=== PATIENT | male | born 1985 | race African-American/Black ===

== ENCOUNTER 2019-10-21 10:21 | Emergency (ER) | payer OTHER, SELFPAY ==
[2019-10-21 10:56] VITALS: BP 161/111; PULSE 80; RESP 16; TEMP 36.8; O2SAT 98
--- NOTE | 2019-10-21 11:25 | ED.DENTAL ---
HPI - Dental/Oral General Chief complaint: Dental/Oral Stated complaint: DENTAL PAIN Time Seen by Provider: 10/21/19 11:10 Source: patient Mode of arrival: ambulatory Limitations: no limitations History of Present Illness HPI Narrative: This is a 34 year old male that presents to the ER for toothache since last night. Reports constant throbbing to the area. Reports he has not seen a dentist in some time. Denies fever, edema or erythema. Location: Tooth # (32) Duration: constant Relieving factors: nothing Context: history of dental caries and poor dental care Related Data Home Medications Medication Instructions Recorded Confirmed metformin 500 mg PO DAILY 10/21/19 Allergies Allergy/AdvReac Type Severity Reaction Status Date / Time No Known Allergies Allergy Verified 10/21/19 10:59 Review of Systems Review of Systems: Narrative: CONSTITUTIONAL: Denies fever ENT: Reports dentalgia RESPIRATORY: Denies dyspnea. GASTROINTESTINAL: Denies vomiting All systems reviewed & are unremarkable except as noted in HPI and below PMFSH Social History Social History (Updated 10/21/19 @ 11:29 by Deb Solis PA-C) Smoking status: Never smoker Substance use: never Gender identity (if verbalized by the patient): Male Exam Narrative: Exam Narrative: GENERAL: Well-appearing, well-nourished, and in no acute distress. HEAD: Normocephalic, atraumatic. EYES: EOMI. ENT: Mucous membranes moist. Oropharynx without tonsillar hypertrophy exudate or other lesions. Poor dentition. Tooth #32 cracked and tender to palpation. Mild surrounding edema. No erythema or fluctuance to suggest abscess. No trismus NECK: Supple. No adenopathy or masses. CHEST: Clear to auscultation. No respiratory distress. No wheezes rales or rhonchi HEART: Regular rate and rhythm. No murmur heard. Normal peripheral pulses. EXTREMITIES: Normal range of motion. No edema. SKIN: Warm, dry, no rash. NEURO: No focal deficits. Alert and oriented x3. PSYCH: Normal mood and affect Course Vital Signs Vital signs: Vital Signs Temperature 98.3 F 10/21/19 10:56 Pulse Rate 80 10/21/19 10:56 Respiratory Rate 16 10/21/19 10:56 Blood Pressure 161/111 H 10/21/19 10:56 Pulse Oximetry 98 10/21/19 10:56 Temperature 98.3 F 10/21/19 10:56 Pulse Rate 80 10/21/19 10:56 Respiratory Rate 16 10/21/19 10:56 Blood Pressure 161/111 H 10/21/19 10:56 Pulse Oximetry 98 10/21/19 10:56 MDM - Dental/Oral MDM Narrative Medical decision making narrative: Patient presents emergency department for toothache since last night. He is afebrile and nontoxic-appearing. Mild edema surrounding the tooth #32 that is tender to palpation. No erythema or fluctuance to suggest abscess. Patient will be started on oral antibiotic and was instructed to follow-up with a dentist. He was given warnings to return the ER Critical Care Time Critical Care Time Critical Care Time: No Discharge Plan Discharge Clinical Impression: Toothache Patient Disposition: Home, Self-Care Condition: Stable Instructions: Antibiotic Form, Toothache (ED) Additional Instructions: Return to the Emergency Department if you experience fever >101, increasing swelling and redness of your tooth, or any other symptoms that are concerning to you Take antibiotic as prescribed. Tylenol or Ibuprofen as needed for pain. You can apply a dab of clove oil to a Qtip and apply to the tooth to help numb the area Follow up with your dentist Prescriptions: New amoxicillin-pot clavulanate 875-125 mg tablet 1 tablet PO Q12H 7 Days Qty: 14 RF: 0 No Action metformin 1,000 mg tablet 500 mg PO DAILY RF: 0 Follow-up/Referrals: PHYSICIAN NOT ON STAFF,NONSTAFF [Primary Care Provider] -
[2019-10-21] MEDS: AMOXICILLIN/CLAVULANATE K 875-125 MG TAB 1 TABLET PO (12:04)
[2019-10-21] MEDS: KETOROLAC (*BKC) 60 MG/2 ML VIAL IM (12:04)
[2019-10-21 12:05] VITALS: BP 125/78; PULSE 66; RESP 18; O2SAT 99
== END 2019-10-21 12:05 | disposition home or self-care (01) ==
PROVIDERS: Emergency Provider Emergency Medicine
DX: K08.89 Other specified disorders of teeth and supporting structures (principal)
CPT/HCPCS: 96372; 99283; A9270; J1885

== ENCOUNTER 2019-12-25 16:53 | Emergency (ER) | payer OTHER, SELFPAY ==
--- NOTE | ~2019-12-25 | CT_ITS ---
EXAMINATION: CT abdomen pelvis wo con EXAM DATE: 12/25/2019 17:24 INDICATION: Flank pain. TECHNIQUE: Spiral CT of the abdomen and pelvis was performed without contrast. Axial, coronal and sag ittal images were reviewed. The dose-length product (DLP) for this examination was 470.65 mGy-cm. T he exposure was tailored according to patient size (auto mA exposure control), and iterative reconstr uction (ASIR) was used as additional dose reduction technique. There is no prior study for compariso n. FINDINGS: There is no nephrolithiasis or hydronephrosis. The prostate is unremarkable. The bladder is unremarkable. The liver, spleen, adrenal glands and pancreas are unremarkable. Gallbladder is u nremarkable. No biliary obstruction. There is no retroperitoneal or pelvic lymphadenopathy. The appendix is normal. The stomach and small bowel are unremarkable. There is expected amount of c olonic stool. No free intraperitoneal gas. The heart is normal in size. There are no pericardial or pleural effusions. The lung bases are unremarkable. The bones are unremarkable. IMPRESSION: 1. No nephrolithiasis, hydronephrosis or acute intra-abdominal findings. Reviewed, dictated and finalized at location A.
--- NOTE | 2019-12-25 17:12 | ED.ABDPAIN ---
HPI - Abdominal Pain General Chief Complaint: Abdominal Pain <Oren Todd PA-C - Last Filed: 12/25/19 19:34> Stated Complaint: abd pain <MARLENY Huitron Last Filed: 12/25/19 19:34> Time Seen by Provider: 12/25/19 16:55 <Oren Todd PA-C - Last Filed: 12/25/19 19:34> Source: patient <Oren Todd PA-C - Last Filed: 12/25/19 19:34> Mode of arrival: ambulatory <MARLENY Huitron Last Filed: 12/25/19 19:34> Limitations: no limitations <Oren Todd PA-C - Last Filed: 12/25/19 19:34> History of Present Illness HPI narrative: Patient is a 34-year-old male who presents with 2 days duration of flank pain noting aching pain to the left flank denies similar occurrence in the past injury or trauma notes nausea nothing is made the pain better or worse and has not taken anything for his symptoms and presents per private vehicle <Oren Todd PA-C - Last Filed: 12/25/19 19:34> Related Data Home Medications: Home Medications Medication Instructions Recorded Confirmed metformin 500 mg PO DAILY 10/21/19 <MARLENY Huitron Last Filed: 12/25/19 19:34> Allergies/Adverse Reactions: Allergies Allergy/AdvReac Type Severity Reaction Status Date / Time No Known Allergies Allergy Verified 10/21/19 10:59 <Oren Todd PA-C - Last Filed: 12/25/19 19:34> Review of Systems Review of Systems: All systems reviewed & are unremarkable except as noted in HPI and below <Oren Todd PA-C - Last Filed: 12/25/19 19:34> PMFSH Social History Social History: Social History Smoking status: Never smoker Substance use: never Gender identity (if verbalized by the patient): Male <Oren Todd PA-C - Last Filed: 12/25/19 19:34> Exam Narrative: Exam Narrative: GENERAL: Well-appearing, well-nourished, and in no acute distress. HEAD: Normocephalic, atraumatic. EYES: PERRLA and EOMI. ENT: Nares clear, no rhinorrhea or epistaxis. Mucous membranes moist. Oropharynx without tonsillar hypertrophy exudate or other lesions. CHEST: Clear to auscultation. No respiratory distress. No wheezes rales or rhonchi HEART: Regular rate and rhythm. No murmur heard. Normal peripheral pulses. ABDOMEN: Soft, left-sided abdominal tenderness no rebound or guarding, nondistended EXTREMITIES: Normal range of motion. No edema. SKIN: Warm, dry, no rash. NEURO: No focal deficits. Alert and oriented x3. Cranial nerves II through XII grossly intact PSYCH: Normal mood and affect. <Oren Todd PA-C - Last Filed: 12/25/19 19:34> Course Course Emergency Course: Patient is a 34-year-old male with left lower back pain of unknown etiology afebrile nontoxic-appearing no distress resting in the room comfortably was given fluids and medications in the emergency department with no high risk changes in the blood work or imaging felt appropriate for outpatient reevaluation provided with reasons to return and is felt appropriate for outpatient reevaluation <Oren Todd PA-C - Last Filed: 12/25/19 19:34> Vital Signs Vital signs: Vital Signs Temperature 37.6 C 12/25/19 17:23 Pulse Rate 91 12/25/19 17:23 Respiratory Rate 17 12/25/19 17:23 Blood Pressure 153/111 H 12/25/19 17:23 Pulse Oximetry 100 12/25/19 17:23 Temperature 37.6 C 12/25/19 17:23 Pulse Rate 89 12/25/19 20:15 Respiratory Rate 17 12/25/19 20:15 Blood Pressure 143/93 H 12/25/19 20:15 Pulse Oximetry 97 12/25/19 20:15 <MARLENY Huitron Last Filed: 12/25/19 19:34> Vital Signs Temperature 37.6 C 12/25/19 17:23 Pulse Rate 91 12/25/19 17:23 Respiratory Rate 17 12/25/19 17:23 Blood Pressure 153/111 H 12/25/19 17:23 Pulse Oximetry 100 12/25/19 17:23 Temperature 37.6 C 12/25/19 17:23 Pulse Rate 89 12/25/19 20:15 Respiratory Rate 17 12/25/19
[2019-12-25 17:23] VITALS: BP 153/111; PULSE 91; RESP 17; TEMP 37.6; O2SAT 100
[2019-12-25] MEDS: SODIUM CHLORIDE 0.9% IV 1,000 ML 999 ML IV CONT (17:39)
[2019-12-25] MEDS: FAMOTIDINE 20 MG/2 ML VIAL IV PUSH (17:40)
[2019-12-25] MEDS: ONDANSETRON INJ 4 MG/2 ML VIAL IV PUSH (17:40)
[2019-12-25 17:58] LABS: Basophils Percent Auto 0.3 % (0.2-1.2); Eosinophils Absolute Auto 0.2 K/mm3 (0-0.3); Eosinophils Percent Auto 2.7 % (0-4.4); Hematocrit 42.7 % (42.0-52.0); Hemoglobin 13.6 g/dL (14.0-18.0); Immature Granulocyte Absolute 0.01 K/mm3 (0.00-0.031); Immature Granulocyte Percent A 0.1 % (0-0.5); Lymphocytes Absolute Auto 3.45 K/mm3 (0.9-3.2); Mean Corpuscular HGB Conc 31.9 g/dl (32-36); Mean Corpuscular Hemoglobin 26.6 pg (26-34); Mean Corpuscular Volume 83.6 fl (80-100); Mean Platelet Volume 9.5 fl (7.4-10.4); Monocytes Absolute Auto 0.7 K/mm3 (0.1-0.6); Monocytes Percent Auto 9.9 % (2.6-8.5); Neutrophils Absolute Auto 2.9 K/mm3 (1.3-6.7); Platelet Count Result 337 k/mm3 (150-375); Red Blood Count 5.11 M/mm3 (4.6-6.20); Red Cell Distribution Width 13.1 % (11.5-14.5); White Blood Count 7.3 K/mm3 (4.5-10.0)
[2019-12-25 18:16] LABS: Alanine Aminotransferase 57 U/L (4-50); Albumin Level 4.9 g/dL (3.5-5.1); Alkaline Phosphatase 48 U/L (38-126); Aspartate Amino Transferase 39 U/L (17-59); Bilirubin,Total 0.3 mg/dL (0.2-1.3); Blood Urea Nitrogen 14 mg/dL (9-20); Calcium 9.8 mg/dL (8.4-10.2); Carbon Dioxide 29 mmol/L (22-30); Chloride 100 mmol/L (98-107); Estimated CRCL calculation 86 ml/min; Estimated Glomerular Filt Rate > 60; Glucose 73 mg/dL (75-110); Lipase 60 U/L (23-300); Sodium 139 mmol/L (137-145)
[2019-12-25 18:23] LABS: Potassium 3.9 mmol/L (3.4-5.0)
[2019-12-25 19:06] VITALS: BP 152/101; PULSE 87; RESP 15; O2SAT 100
[2019-12-25] MEDS: KETOROLAC 30 MG/ML VIAL (*BKC) IV PUSH (19:07)
[2019-12-25 19:15] LABS: Add Urine Microscopic? NO; Appearance Urine Clear (Clear); Bilirubin Urine Negative (Negative); Blood Urine Negative (Negative); Color Urine Straw (Yellow); Glucose Urine UA Negative (Negative); Ketones Urine Negative (Negative); Leukocyte Esterase Ur Negative LEU/UL (Negative); Nitrate Urine Negative (Negative); Protein Urine Negative (Negative); Specific Grav Ur 1.016 (1.001-1.035); Urobilinogen Urine Negative mg/dL (<2.0)
[2019-12-25 19:26] VITALS: BP 133/82; PULSE 84; RESP 18; O2SAT 99
--- NOTE | 2019-12-25 19:26 | PC.NURSE ---
Assumed care of pt at this time. Report from CHRIS Lewis
[2019-12-25 20:15] VITALS: BP 143/93; PULSE 89; RESP 17; O2SAT 97
== END 2019-12-25 20:15 | disposition home or self-care (01) ==
PROVIDERS: Emergency Medicine Emergency Medical Services; Emergency Provider Emergency Medicine; PCP Internal Medicine
DX: R10.9 Unspecified abdominal pain (principal)
CPT/HCPCS: 36415; 74176; 80053; 81003; 83690; 85025; 96361; 96365; 96375; 99284; J0131; J1885; J2405; J7030

== ENCOUNTER 2020-01-06 14:07 | Emergency (ER) | payer OTHER, SELFPAY ==
--- NOTE | ~2020-01-06 | XR_ITS ---
XR chest 1V portable DATE: 01/06/2020 14:49 INDICATION: Shortness of breath TECHNIQUE: Portable AP chest on 01/06/2020 at 1450 hours COMPARISON: 07/15/2017 PA and lateral chest FINDINGS: Normal heart size. No hilar or mediastinal enlargement. No pulmonary infiltrate or consolid ation, pleural effusion or pulmonary vascular congestion or pneumothorax is detected. IMPRESSION: No active cardiopulmonary disease Reviewed, dictated and finalized at location A.
--- NOTE | 2020-01-06 14:11 | ECG_ITS ---
Measurements Intervals [place] Rate: 107 P: 27 DE: 146 QRS: 3 QRSD: 85 T: 9 QT: 327 QTc: 436 Interpretive Statements SINUS TACHYCARDIA BORDERLINE T WAVE ABNORMALITY- INFERIOR LEADS BASELINE WANDER- I, II, AVR, AVL, AVF ABNORMAL ECG Electronically Signed On 01-06-2020 15:05:34 CDT by Artem Gil D.O.
[2020-01-06 14:20] VITALS: BP 171/108; PULSE 114; RESP 16; TEMP 37.1; O2SAT 99
--- NOTE | 2020-01-06 14:25 | ED.GENADULT ---
HPI - General Adult General Chief complaint: Shortness of Breath/Dyspnea <Oren Todd PA-C - Last Filed: 01/06/20 18:47> Stated complaint: sob <Oren Todd PA-C - Last Filed: 01/06/20 18:47> Time Seen by Provider: 01/06/20 14:17 <Oren Todd PA-C - Last Filed: 01/06/20 18:47> Source: patient <MARLENY Huitron Last Filed: 01/06/20 18:47> Mode of arrival: ambulatory <MARLENY Huitron Last Filed: 01/06/20 18:47> Limitations: no limitations <Oren Todd PA-C - Last Filed: 01/06/20 18:47> History of Present Illness HPI narrative: Patient is a 34-year-old male who presents to emergency department for evaluation of 3 days duration of pleuritic left-sided chest pain also noting some constipation. Patient notes he took MiraLAX with some improvement. Patient denies any cough URI symptoms. Patient notes he has had some intermittent nausea and vomiting. Patient has not seen primary care for this. Patient was instructed to come to the ER by primary care. On arrival to emergency department patient resting comfortably in the room in no distress notes some mild aching discomfort of the upper abdomen and left-sided chest pain that is worse with deep breathing <Oren Todd PA-C - Last Filed: 01/06/20 18:47> Related Data Home medications: Home Medications Medication Instructions Recorded Confirmed metformin 500 mg PO DAILY 10/21/19 lisinopril 5 mg PO DAILY 01/06/20 <MARLENY Huitron Last Filed: 01/06/20 18:47> Allergies/adverse reactions: Allergies Allergy/AdvReac Type Severity Reaction Status Date / Time No Known Allergies Allergy Verified 01/06/20 14:43 <Oren Todd PA-C - Last Filed: 01/06/20 18:47> Review of Systems Review of Systems: All systems reviewed & are unremarkable except as noted in HPI and below <Oren Todd PA-C - Last Filed: 01/06/20 18:47> [facility] Past Medical History Medical History: Medical History (Updated 01/06/20 @ 18:46 by Oren Todd PA-C) Diabetes mellitus <Oren Todd PA-C - Last Filed: 01/06/20 18:47> Social History Social History: Social History Smoking status: Never smoker Substance use: never Gender identity (if verbalized by the patient): Male <Oren Todd PA-C - Last Filed: 01/06/20 18:47> Exam Narrative: Exam Narrative: GENERAL: Well-appearing, well-nourished, and in no acute distress. HEAD: Normocephalic, atraumatic. EYES: PERRLA and EOMI. ENT: Nares clear, no rhinorrhea or epistaxis. Mucous membranes moist. CHEST: Clear to auscultation. No respiratory distress. No wheezes rales or rhonchi HEART: Regular rate and rhythm. No murmur heard. Normal peripheral pulses. ABDOMEN: Soft, epigastric tenderness to palpation no rebound or guarding, nondistended, normal active bowel sounds. EXTREMITIES: Normal range of motion. No edema. SKIN: Warm, dry, no rash. NEURO: No focal deficits. Alert and oriented x3. Cranial nerves II through XII grossly intact PSYCH: Normal mood and affect. <Oren Todd PA-C - Last Filed: 01/06/20 18:47> Course Course Emergency Course: Patient in the room in no distress aware of case findings treatment plan and diagnosis agreeing to follow-up as directed or to return if symptoms worsen or concerns patient is afebrile nontoxic-appearing no distress and felt appropriate for outpatient reevaluation <Oren Todd PA-C - Last Filed: 01/06/20 18:47> Vital Signs Vital signs: Vital Signs Temperature 98.8 F 01/06/20 14:20 Pulse Rate 114 H 01/06/20 14:20 Respiratory Rate 16 01/06/20 14:20 Blood Pressure 171/108 H 01/06/20 14:20 Pulse Oximetry 99 01/06/20 14:20 Temperature 98.8 F 01/06/20 14:20 Pulse Rate 70 01/06/20 19:00 Respiratory Rate 16 01/06/20 19:00 Blood Pressure 134/96 H 01/06/20 19:00 Puls
[2020-01-06] MEDS: ONDANSETRON INJ 4 MG/2 ML VIAL IV PUSH (14:43)
[2020-01-06 14:55] LABS: Basophils Percent Auto 0.3 % (0.2-1.2); Eosinophils Absolute Auto 0.2 K/mm3 (0-0.3); Eosinophils Percent Auto 2.7 % (0-4.4); Hematocrit 44.4 % (42.0-52.0); Hemoglobin 13.9 g/dL (14.0-18.0); Immature Granulocyte Absolute 0.01 K/mm3 (0.00-0.031); Immature Granulocyte Percent A 0.2 % (0-0.5); Lymphocytes Absolute Auto 2.55 K/mm3 (0.9-3.2); Lymphocytes Percent Auto 43.1 % (18.3-44.2); Mean Corpuscular HGB Conc 31.3 g/dl (32-36); Mean Corpuscular Hemoglobin 26.6 pg (26-34); Mean Corpuscular Volume 84.9 fl (80-100); Mean Platelet Volume 9.7 fl (7.4-10.4); Monocytes Absolute Auto 0.6 K/mm3 (0.1-0.6); Monocytes Percent Auto 10.3 % (2.6-8.5); Neutrophils Absolute Auto 2.6 K/mm3 (1.3-6.7); Neutrophils Percent Auto 43.4 % (45.5-73.1); Platelet Count Result 362 k/mm3 (150-375); Red Blood Count 5.23 M/mm3 (4.6-6.20); Red Cell Distribution Width 13.2 % (11.5-14.5); White Blood Count 5.9 K/mm3 (4.5-10.0)
[2020-01-06 15:00] VITALS: BP 157/103; PULSE 107; RESP 14; O2SAT 97
[2020-01-06 15:05] LABS: Partial Thromboplastin Time 26.4 SECONDS (22.3-36.8); Prothrombin Time 13.1 Seconds (11.1-14.7)
[2020-01-06 15:08] LABS: Alanine Aminotransferase 95 U/L (4-50); Albumin Level 4.8 g/dL (3.5-5.1); Alkaline Phosphatase 53 U/L (38-126); Aspartate Amino Transferase 51 U/L (17-59); Bilirubin,Total 0.3 mg/dL (0.2-1.3); Blood Urea Nitrogen 10 mg/dL (9-20); Calcium 9.4 mg/dL (8.4-10.2); Carbon Dioxide 28 mmol/L (22-30); Chloride 103 mmol/L (98-107); Estimated CRCL calculation 77 ml/min; Estimated Glomerular Filt Rate > 60; Glucose 83 mg/dL (75-110); Lipase 37 U/L (23-300); Potassium 4.2 mmol/L (3.4-5.0); Sodium 139 mmol/L (137-145)
[2020-01-06 15:17] LABS: D Dimer 0.27 ug/mL (<0.48)
[2020-01-06 15:19] LABS: Troponin I < 0.012 ng/mL (0.000-0.034)
[2020-01-06 15:20] LABS: Add Urine Microscopic? NO; Appearance Urine Clear (Clear); Bilirubin Urine Negative (Negative); Blood Urine Negative (Negative); Color Urine Colorless (Yellow); Glucose Urine UA Negative (Negative); Ketones Urine Negative (Negative); Leukocyte Esterase Ur Negative LEU/UL (Negative); Nitrate Urine Negative (Negative); Protein Urine Negative (Negative); Specific Grav Ur 1.005 (1.001-1.035); Urobilinogen Urine Negative mg/dL (<2.0)
[2020-01-06 16:00] VITALS: BP 148/98; PULSE 100; RESP 16; O2SAT 97
[2020-01-06 17:00] VITALS: BP 142/100; PULSE 92; RESP 16; O2SAT 98
[2020-01-06 18:00] VITALS: BP 144/94; PULSE 90; RESP 16; O2SAT 97
[2020-01-06 18:06] LABS: Troponin I < 0.012 ng/mL (0.000-0.034)
[2020-01-06 19:00] VITALS: BP 134/96; PULSE 70; RESP 16; O2SAT 98
== END 2020-01-06 19:47 | disposition home or self-care (01) ==
PROVIDERS: Emergency Medicine Emergency Medical Services; Emergency Provider Emergency Medicine; PCP Internal Medicine
DX: R07.81 Pleurodynia (principal); R10.10 Upper abdominal pain, unspecified; R00.0 Tachycardia, unspecified; R94.31 Abnormal electrocardiogram [ECG] [EKG]
CPT/HCPCS: 36415; 71045; 80053; 81003; 83690; 84484; 85025; 85380; 85610; 85730; 93005; 96374; 99284; J2405

== ENCOUNTER 2020-01-10 11:06 | Emergency (ER) | payer OTHER, SELFPAY ==
[2020-01-10 11:15] VITALS: BP 124/86; PULSE 98; RESP 16; TEMP 37.2; O2SAT 99
--- NOTE | 2020-01-10 11:37 | ED.SKABFB ---
HPI - Skin/Abscess/Foreign Bdy General Chief complaint: Wound/Laceration Stated complaint: possible infected left hand Time Seen by Provider: 01/10/20 11:33 Source: patient and RN notes reviewed Mode of arrival: ambulatory Limitations: no limitations History of Present Illness HPI narrative: Patient presents today complaining of a scratch to the dorsum of his right hand that was sustained a few days ago when he was reaching for something in his glove box. An area has formed a scab. He is up-to-date on his tetanus vaccine. Denies any drainage. Patient is concerned that he has gangrene. complaint: discoloration Related Data Home Medications Medication Instructions Recorded Confirmed metformin 1,000 mg PO DAILY 10/21/19 01/10/20 famotidine [Pepcid] 20 mg PO BID PRN 01/10/20 01/10/20 Allergies Allergy/AdvReac Type Severity Reaction Status Date / Time No Known Allergies Allergy Verified 01/10/20 11:33 Review of Systems Review of Systems: Narrative: CONSTITUTIONAL: Denies body aches, fever, chills, or sweats. EYES: Denies visual changes, redness, or discharge. ENT: Denies rhinorrhea, congestion, sore throat, or otalgia. CARDIOVASCULAR: Denies chest pain, palpitations, or edema. RESPIRATORY: Denies cough or dyspnea. GASTROINTESTINAL: Denies abdominal pain, nausea, vomiting, or diarrhea. GENITOURINARY: Denies dysuria or hematuria. SKIN: Denies rash, itching. + Abrasion to left hand MUSCULOSKELETAL: Denies back pain, joint pain, or myalgia. NEUROLOGIC: Denies headache, numbness, tingling, or weakness. PSYCH: Denies depression or anxiety. [facility] Past Medical History Medical History (Updated 01/10/20 @ 11:41 by Darlene Henry, [facility], ) Diabetes mellitus Social History Social History Smoking status: Never smoker Substance use: never Gender identity (if verbalized by the patient): Male Comments At time of signature, I have reviewed and agree with nursing past medical, surgical, social and family history unless otherwise noted. Please see nursing chart for further information. There is no relevant family history pertinent to the presenting complaint Exam Narrative: Exam Narrative: GENERAL: Well-appearing, well-nourished, and in no acute distress. HEAD: Normocephalic, atraumatic. EYES: EOMI. No redness or drainage. ENT: Mucous membranes pink and moist. NECK: Normal AROM. CHEST: No respiratory distress. EXTREMITIES: Normal range of motion. No edema. SKIN: Warm, dry, no rash. Capillary refill normal. Normal skin turgor.[id number] scabbed abrasion to dorsum of left hand with scant surrounding erythema. No edema, induration, or fluctuance noted. Distal sensation intact. Capillary refill normal. Radial pulse normal. Full AROM of the wrist and all fingers. NEURO: No focal deficits. Alert and oriented x3. Gait steady. PSYCH: Normal affect. No signs of depression or anxiety. MDM - Skin/Abscess/Foreign Bdy Differential Diagnosis Differential diagnosis: Likely abscess of skin or subcutaneous tissue, cellulitis and other (abrasion) Critical Care Time Critical Care Time Critical Care Time: No Discharge Plan Discharge Clinical Impression: Abrasion Patient Disposition: Home, Self-Care Condition: Stable Instructions: Abrasion (ED) Additional Instructions: Apply the mupirocin ointment as directed. Monitor for any signs of worsening infection such as increased redness, pain, swelling or drainage. Follow-up with your PCP if you note any. Take Tylenol for pain. Your blood pressure was elevated above 120/80 today at Urgent Care. This puts you above the threshold for follow up. Please schedule a followup visit with your personal physician as soon as possible, for further evaluation and treatment. Even blood pressure exceeding 120/80 may indicate pre-hypertension. Patient Language: Faroese Prescriptions: New mupirocin 2 %
== END 2020-01-10 11:42 | disposition home or self-care (01) ==
PROVIDERS: Emergency Provider Nurse Practitioner; PCP Internal Medicine
DX: S60.511A Abrasion of right hand, initial encounter (principal); Z79.84 Long term (current) use of oral hypoglycemic drugs; E11.9 Type 2 diabetes mellitus without complications; W26.9XXA Contact with unspecified sharp object(s), initial encounter
CPT/HCPCS: 99213; G0463

== ENCOUNTER 2020-07-29 10:19 | Emergency (ER) | payer OTHER, SELFPAY ==
--- NOTE | ~2020-07-29 | US_ITS ---
EXAMINATION: US scrotum doppler EXAM DATE: 07/29/2020 12:18 INDICATION: Bilateral testicular, scrotal pain. TECHNIQUE: Multiple grayscale and Doppler images of the testicles and scrotum were obtained bilateral ly. There is no prior study for comparison. FINDINGS: Right testicle measures 3.7 x 2.9 x 2.0 cm and is morphologically normal. Low resistance Doppler sissy w confirmed. The epididymis is unremarkable. There is no hydrocele or varicocele. Left testicle measures 3.7 x 2.9 x 1.8 cm and is morphologically normal. Low resistance Doppler flow confirmed. The epididymis is unremarkable. There is no hydrocele or varicocele. IMPRESSION: 1. Unremarkable testicular/scrotal ultrasound exam. Reviewed, dictated and finalized at location A. [employer]
[2020-07-29 10:52] VITALS: BP 144/93; PULSE 105; RESP 22; TEMP 37.1; O2SAT 99
[2020-07-29 11:35] LABS: Add Urine Microscopic? YES; Appearance Urine Clear (Clear); Bilirubin Urine Negative (Negative); Blood Urine Negative (Negative); Color Urine Yellow (Yellow); Glucose Urine UA 3+ mg/dL (Negative); Ketones Urine Negative (Negative); Leukocyte Esterase Ur Negative LEU/UL (Negative); Mucus Urine Rare /lpf; Nitrate Urine Negative (Negative); Protein Urine 2+ mg/dL (Negative); RBC Urine 0-2 /hpf (0-2); Specific Grav Ur 1.038 (1.001-1.035); Urobilinogen Urine Negative mg/dL (<2.0); WBC Urine 0-3 /hpf
--- NOTE | 2020-07-29 11:45 | ED.GENADULT ---
HPI - General Adult General Chief complaint: Urogenital-Male Stated complaint: weakness/freq urination Time Seen by Provider: 07/29/20 11:23 Source: patient History of Present Illness HPI narrative: Patient is a 34 y/o male complaining of frequent urination for 1 week. He is unable to quantify how many times a day he is going to restroom. There is no alleviating or exacerbating factor. He also has some testicular pain. He thinks he lost 15 lbs in last 1-2 weeks. He states that he is on Metformin once daily for diabetes. Related Data Home Medications Medication Instructions Recorded Confirmed metformin 1,000 mg PO DAILY 10/21/19 01/10/20 doxycycline hyclate 07/29/20 Allergies Allergy/AdvReac Type Severity Reaction Status Date / Time No Known Allergies Allergy Verified 07/29/20 11:18 Review of Systems Constitutional: Constitutional: Denies chills, Denies fever(s), Denies headache(s) and Denies weakness Eyes: Eyes: Denies blurry vision ENT: Denies headache(s) and Denies neck pain Cardiovascular: Cardiovascular: Denies chest pain and Denies dyspnea Respiratory: Respiratory: Denies cough and Denies dyspnea Gastrointestinal: Gastrointestinal: Denies abdominal pain, Denies diarrhea, Denies nausea and Denies vomiting Genitourinary: Genitourinary: Denies hematuria, Denies dysuria, Reports testicular pain and Reports urinary frequency Musculoskeletal: Musculoskeletal: Denies back pain and Denies neck pain Neurologic: Denies headache(s) and Denies weakness PMFSH Past Medical History Medical History Diabetes mellitus Social History Social History Smoking status: Never smoker Substance use: never Gender identity (if verbalized by the patient): Male Exam Const: General: no acute distress and well developed Orientation/consciousness: oriented to person, oriented to place, oriented to time and patient oriented x3 HENMT: Head: normocephalic Ears: external ears normal General nose exam: Normal external nose present Eyes: General: appearance normal, both eyes and all related structures Conjunctivae: conjunctivae normal Neck: Neck: normal visual inspection and full ROM Chest: Chest palpation & inspection: normal inspection of the chest and no tenderness Resp: Effort & Inspection: normal respiratory effort Auscultation: clear to auscultation bilaterally Cardio: Rate: regular rate Rhythm: regular rhythm GI: GI Palp: No abdominal tenderness and Yes Soft to palpation : Penis: Yes normal penis Scrotum: scrotum normal and no masses Skin: General skin exam: normal color and turgor normal Neuro: General: oriented to person, oriented to place, oriented to time and patient oriented x3 Cognition (Neuro): normal cognition Extrem: General: normal to inspection, full ROM and no pedal edema Psych: Appearance: grossly normal Mental Status: mental status grossly normal Affect: normal affect Course Vital Signs Vital signs: Vital Signs Temperature 37.1 C 07/29/20 10:52 Pulse Rate 105 H 07/29/20 10:52 Respiratory Rate 22 H 07/29/20 10:52 Blood Pressure 144/93 H 07/29/20 10:52 Pulse Oximetry 99 07/29/20 10:52 Temperature 37.1 C 07/29/20 10:52 Pulse Rate 78 07/29/20 15:54 Respiratory Rate 16 07/29/20 15:54 Blood Pressure 134/94 H 07/29/20 15:54 Pulse Oximetry 99 07/29/20 10:52 Medical Decision Making Vital Signs Vital Signs: Vital Signs Temperature 37.1 C 07/29/20 10:52 Pulse Rate 105 H 07/29/20 10:52 Respiratory Rate 22 H 07/29/20 10:52 Blood Pressure 144/93 H 07/29/20 10:52 Pulse Oximetry 99 07/29/20 10:52 Temperature 37.1 C 07/29/20 10:52 Pulse Rate 78 07/29/20 15:54 Respiratory Rate 16 07/29/20 15:54 Blood Pressure 134/94 H 07/29/20 15:54 Pulse Oximetry 99 07/29/20 10:52 Lab Data Result diagrams: 07/29/20 12:2
[2020-07-29 12:36] LABS: Basophils Percent Auto 0.3 % (0.2-1.2); Eosinophils Absolute Auto 0.2 K/mm3 (0-0.3); Eosinophils Percent Auto 2.4 % (0-4.4); Hematocrit 42.7 % (42.0-52.0); Immature Granulocyte Absolute 0.01 K/mm3 (0.00-0.031); Immature Granulocyte Percent A 0.2 % (0-0.5); Lymphocytes Absolute Auto 2.78 K/mm3 (0.9-3.2); Mean Corpuscular HGB Conc 32.8 g/dl (32-36); Mean Corpuscular Hemoglobin 27.3 pg (26-34); Mean Corpuscular Volume 83.2 fl (80-100); Mean Platelet Volume 10.4 fl (7.4-10.4); Monocytes Absolute Auto 0.5 K/mm3 (0.1-0.6); Monocytes Percent Auto 7.1 % (2.6-8.5); Neutrophils Absolute Auto 3.2 K/mm3 (1.3-6.7); Platelet Count Result 342 k/mm3 (150-375); Red Blood Count 5.13 M/mm3 (4.6-6.20); Red Cell Distribution Width 12.4 % (11.5-14.5); White Blood Count 6.6 K/mm3 (4.5-10.0)
[2020-07-29 12:49] LABS: Alanine Aminotransferase 59 U/L (4-50); Albumin Level 4.9 g/dL (3.5-5.1); Alkaline Phosphatase 70 U/L (38-126); Anion Gap 12 mmol/L (8-16); Aspartate Amino Transferase 35 U/L (17-59); Bilirubin,Total 0.7 mg/dL (0.2-1.3); Blood Urea Nitrogen 18 mg/dL (9-20); Carbon Dioxide 26 mmol/L (22-30); Chloride 100 mmol/L (98-107); Estimated CRCL calculation 80 ml/min; Estimated Glomerular Filt Rate > 60; Glucose 467 mg/dL (75-110); Potassium 4.7 mmol/L (3.4-5.0); Sodium 138 mmol/L (137-145)
[2020-07-29] MEDS: SODIUM CHLORIDE 0.9% IV 1,000 ML 999 ML IV CONT (13:46)
[2020-07-29] MEDS: INSULIN HUMAN REGULAR (*BKC) 100 UNITS/ML 10 UNITS IV PUSH (13:48)
[2020-07-29 15:29] LABS: Glucose Point of Care 278 (65-105)
[2020-07-29 15:54] VITALS: BP 134/94; PULSE 78; RESP 16
== END 2020-07-29 15:54 | disposition home or self-care (01) ==
PROVIDERS: Emergency Provider Emergency Medicine; PCP Internal Medicine
DX: E11.65 Type 2 diabetes mellitus with hyperglycemia (principal); Z79.84 Long term (current) use of oral hypoglycemic drugs; N50.819 Testicular pain, unspecified
CPT/HCPCS: 36415; 76870; 80053; 81001; 85025; 93976; 96361; 96374; 99284; J1815; J7030

== ENCOUNTER 2020-08-02 15:05 | Emergency (ER) | payer OTHER, SELFPAY ==
--- NOTE | ~2020-08-02 | CT_ITS ---
EXAMINATION: CT abdomen pelvis wo con DATE: 08/02/2020 16:32 INDICATION: Flank and abdominal pain. TECHNIQUE: Computed tomography (CT) of the abdomen and pelvis was performed without intravenous contr ast. Automated exposure control and iterative reconstruction technique were employed. The dose-length product was 427.77 mGy-cm. COMPARISON: 12/25/2019 FINDINGS: Lung bases are clear. Heart size is normal. No pericardial or pleural effusion. Bilateral gynecomasti a. Somewhat heterogeneous pattern of diffuse hepatic steatosis with focal sparing along the gallbladd er fossa. Gallbladder, spleen, pancreas and bilateral adrenal glands are normal. Kidneys and ureters are normal with no urolithiasis, hydroureteronephrosis or perinephric/ureteral stranding. Bladder and prostate are normal. Bowels including the appendix are normal. No free intraperitoneal gas or fluid. No pathologically enlarged abdominal or pelvic lymphadenopathy. Tiny fat-containing umbilical hernia . Bones are unremarkable. IMPRESSION: 1. Normal appendix. No urolithiasis or other acute intra-abdominal/pelvic process. 2. Diffuse hepatic steatosis. Reviewed, dictated and finalized at [facility]. ENT UNION CONSULTANT IMPRESSION: 1. Normal appendix. No urolithiasis or other acute intra-abdominal/pelvic proce ss. 2. Diffuse hepatic steatosis.
[2020-08-02 15:08] VITALS: BP 134/80; PULSE 89; RESP 19; TEMP 37; O2SAT 100
[2020-08-02 15:12] LABS: Glucose Point of Care 215 (65-105)
[2020-08-02 15:18] LABS: Basophils Percent Auto 0.3 % (0.2-1.2); Eosinophils Absolute Auto 0.2 K/mm3 (0-0.3); Eosinophils Percent Auto 2.1 % (0-4.4); Hemoglobin 13.1 g/dL (14.0-18.0); Immature Granulocyte Absolute 0.02 K/mm3 (0.00-0.031); Immature Granulocyte Percent A 0.3 % (0-0.5); Lymphocytes Absolute Auto 3.34 K/mm3 (0.9-3.2); Lymphocytes Percent Auto 47.3 % (18.3-44.2); Mean Corpuscular HGB Conc 32.8 g/dl (32-36); Mean Corpuscular Hemoglobin 27.3 pg (26-34); Mean Corpuscular Volume 83.5 fl (80-100); Mean Platelet Volume 10.6 fl (7.4-10.4); Monocytes Absolute Auto 0.6 K/mm3 (0.1-0.6); Monocytes Percent Auto 8.1 % (2.6-8.5); Neutrophils Percent Auto 41.9 % (45.5-73.1); Platelet Count Result 342 k/mm3 (150-375); Red Blood Count 4.79 M/mm3 (4.6-6.20); Red Cell Distribution Width 12.5 % (11.5-14.5); White Blood Count 7.1 K/mm3 (4.5-10.0)
[2020-08-02 15:24] LABS: Add Urine Microscopic? YES; Appearance Urine Clear (Clear); Bilirubin Urine Negative (Negative); Blood Urine Negative (Negative); Color Urine Yellow (Yellow); Glucose Urine UA 3+ mg/dL (Negative); Ketones Urine Negative (Negative); Leukocyte Esterase Ur Negative LEU/UL (Negative); Nitrate Urine Negative (Negative); Protein Urine 1+ mg/dL (Negative); RBC Urine 0-2 /hpf (0-2); Specific Grav Ur 1.029 (1.001-1.035); Squamous Epithelial Cell Urine Rare /hpf (Few); Urobilinogen Urine Negative mg/dL (<2.0); WBC Urine 0-3 /hpf
[2020-08-02 15:30] LABS: Anion Gap 12 mmol/L (8-16); Blood Urea Nitrogen 19 mg/dL (9-20); Calcium 9.9 mg/dL (8.4-10.2); Carbon Dioxide 26 mmol/L (22-30); Chloride 101 mmol/L (98-107); Estimated CRCL calculation 77 ml/min; Estimated Glomerular Filt Rate > 60; Glucose 243 mg/dL (75-110); Potassium 4.2 mmol/L (3.4-5.0); Sodium 139 mmol/L (137-145)
[2020-08-02 16:20] VITALS: BP 131/73; PULSE 85; RESP 18; TEMP 36.6; O2SAT 99
[2020-08-02] MEDS: SODIUM CHLORIDE 0.9% IV 1,000 ML 999 ML IV CONT (16:20)
--- NOTE | 2020-08-02 16:40 | ED.ABDPAIN ---
HPI - Abdominal Pain General Chief Complaint: Abdominal Pain Stated Complaint: FLANK PAIN Time Seen by Provider: 08/02/20 16:03 Source: patient Mode of arrival: ambulatory Limitations: no limitations History of Present Illness HPI narrative: This is a 34 year old male that presents to the ER for bilateral flank pain x 1 week. Associated with polyuria. Also reports left sided abdominal pain. Reports he has been having trouble controlling his blood sugar. He was seen here for this a couple of days ago and has been increasing his Metformin as he was instructed. Denies fever, vomiting, diarrhea, dysuria or hematuria. Related Data Home Medications Medication Instructions Recorded Confirmed metformin 1,000 mg PO DAILY 10/21/19 01/10/20 acyclovir 08/02/20 clindamycin HCl 08/02/20 lisinopril 08/02/20 Allergies Allergy/AdvReac Type Severity Reaction Status Date / Time No Known Allergies Allergy Verified 08/02/20 15:11 Review of Systems Review of Systems: Narrative: CONSTITUTIONAL: Denies fever GASTROINTESTINAL: Reports abdominal pain. Denies nausea, vomiting, or diarrhea. GENITOURINARY: Denies dysuria or hematuria. MUSCULOSKELETAL: Reports back pain All systems reviewed & are unremarkable except as noted in HPI and below PMFSH Past Medical History Medical History Diabetes mellitus Social History Social History Smoking status: Never smoker Substance use: never Gender identity (if verbalized by the patient): Male Exam Narrative: Exam Narrative: GENERAL: Well-appearing, well-nourished, and in no acute distress. HEAD: Normocephalic, atraumatic. EYES: EOMI. CHEST: Clear to auscultation. No respiratory distress. No wheezes rales or rhonchi HEART: Regular rate and rhythm. No murmur heard. Normal peripheral pulses. ABDOMEN: Soft, nondistended, normal active bowel sounds. Tender to palpation of the left side of the abdomen, without guarding. No CVA tenderness BACK: No midline thoracic or lumbar spine tenderness EXTREMITIES: Normal range of motion. No edema. SKIN: Warm, dry, no rash. NEURO: No focal deficits. Alert and oriented x3. PSYCH: Normal mood and affect Course Consultations Consultation #1: Spoke with primary on-call Dr. Bates, who does not recommend any additional medications at this time for his diabetes. He is to follow-up at his scheduled appointment in 3 days. Date: 08/02/20 Time: 18:36 Vital Signs Vital signs: Vital Signs Temperature 98.6 F 08/02/20 15:08 Pulse Rate 89 08/02/20 15:08 Respiratory Rate 19 08/02/20 15:08 Blood Pressure 134/80 08/02/20 15:08 Pulse Oximetry 100 08/02/20 15:08 Temperature 97.1 F L 08/02/20 17:33 Pulse Rate 81 08/02/20 17:33 Respiratory Rate 17 08/02/20 17:33 Blood Pressure 139/71 08/02/20 17:33 Pulse Oximetry 99 08/02/20 17:33 MDM - Abdominal Pain MDM Narrative Medical decision making narrative: Patient presents to the emergency department for urinary frequency and flank pain. He is afebrile and nontoxic-appearing. CBC is without leukocytosis. Does show normocytic anemia with hemoglobin of 13.1. Metabolic panel without concerning findings, other than elevation in blood glucose to 243. This improved after IV fluid administration, most recent blood sugar 174. His hemoglobin A1c is 11.1. No ketones noted in urine, he does have 3+ glucose. CT scan of the abdomen and pelvis is without acute findings. Patient was updated on case findings. Spoke with primary on-call Dr. Bates, who does not recommend any additional medications at this time for his diabetes. He is to follow-up at his scheduled appointment in 3 days. Patient is stable and felt appropriate for further outpatient evaluation. He was given warnings to return to the ER Lab Data Attestation: I reviewed the patient's lab results. Result diagrams: 08/02/20 15:12
[2020-08-02 17:33] VITALS: BP 139/71; PULSE 81; RESP 17; TEMP 36.2; O2SAT 99
[2020-08-02 17:54] LABS: Glucose Point of Care 174 (65-105)
[2020-08-02 18:00] LABS: Hemoglobin A1C 11.1 % (<5.7)
[2020-08-02 18:48] VITALS: BP 116/70; PULSE 70; RESP 12; O2SAT 99
== END 2020-08-02 18:49 | disposition home or self-care (01) ==
PROVIDERS: Physician Assistant; Emergency Provider Emergency Medicine; PCP Internal Medicine
DX: E11.65 Type 2 diabetes mellitus with hyperglycemia (principal); Z79.84 Long term (current) use of oral hypoglycemic drugs; K76.0 Fatty (change of) liver, not elsewhere classified
CPT/HCPCS: 36415; 74176; 80048; 81001; 82948; 83036; 85025; 96360; 99284; J7030

== ENCOUNTER 2020-08-15 14:14 | Emergency (ER) | payer OTHER, SELFPAY ==
--- NOTE | ~2020-08-15 | XR_ITS ---
EXAMINATION: XR chest 1V portable DATE: 08/15/2020 16:06 INDICATION: Cough and shortness of breath. TECHNIQUE: A single frontal view of the chest was obtained. COMPARISON: Chest one view 01/06/20, CT abdomen and pelvis 08/02/2020 FINDINGS: The chest demonstrates clear lungs without pneumonia, pleural effusion, or pneumothorax. Th e heart size is normal. IMPRESSION: 1. No acute cardiopulmonary disease. Reviewed, dictated and finalized at location A. L CAN INSPECTOR
[2020-08-15 14:28] VITALS: BP 147/92; PULSE 83; RESP 18; TEMP 36.6; O2SAT 100
[2020-08-15 15:20] LABS: Basophils Percent Auto 0.3 % (0.2-1.2); Eosinophils Absolute Auto 0.1 K/mm3 (0-0.3); Eosinophils Percent Auto 2.1 % (0-4.4); Hematocrit 36.2 % (42.0-52.0); Hemoglobin 11.9 g/dL (14.0-18.0); Immature Granulocyte Absolute 0.02 K/mm3 (0.00-0.031); Immature Granulocyte Percent A 0.3 % (0-0.5); Lymphocytes Absolute Auto 2.83 K/mm3 (0.9-3.2); Lymphocytes Percent Auto 48.9 % (18.3-44.2); Mean Corpuscular HGB Conc 32.9 g/dl (32-36); Mean Corpuscular Hemoglobin 27.5 pg (26-34); Mean Corpuscular Volume 83.8 fl (80-100); Mean Platelet Volume 9.4 fl (7.4-10.4); Monocytes Absolute Auto 0.6 K/mm3 (0.1-0.6); Monocytes Percent Auto 9.7 % (2.6-8.5); Neutrophils Absolute Auto 2.2 K/mm3 (1.3-6.7); Neutrophils Percent Auto 38.7 % (45.5-73.1); Platelet Count Result 335 k/mm3 (150-375); Red Blood Count 4.32 M/mm3 (4.6-6.20); Red Cell Distribution Width 13.2 % (11.5-14.5); White Blood Count 5.8 K/mm3 (4.5-10.0)
[2020-08-15 15:33] LABS: Alanine Aminotransferase 48 U/L (4-50); Albumin Level 4.3 g/dL (3.5-5.1); Alkaline Phosphatase 47 U/L (38-126); Anion Gap 8 mmol/L (8-16); Aspartate Amino Transferase 35 U/L (17-59); Bilirubin,Total 0.5 mg/dL (0.2-1.3); Blood Urea Nitrogen 13 mg/dL (9-20); Calcium 8.9 mg/dL (8.4-10.2); Carbon Dioxide 28 mmol/L (22-30); Chloride 102 mmol/L (98-107); Estimated CRCL calculation 93 ml/min; Estimated Glomerular Filt Rate > 60; Glucose 220 mg/dL (75-110); Magnesium 1.8 mg/dL (1.6-2.3); Phosphorus 3.7 mg/dL (2.5-4.5); Potassium 3.9 mmol/L (3.4-5.0); Sodium 138 mmol/L (137-145)
[2020-08-15] MEDS: KETOROLAC 30 MG/ML VIAL (*BKC) IV PUSH (15:36)
[2020-08-15] MEDS: SODIUM CHLORIDE 0.9% IV 1,000 ML 999 ML IV CONT (15:36)
[2020-08-15 15:38] LABS: Beta-Hydroxybutyrate/Acetoacetate 0.06 mmol/L (0.02-0.27)
[2020-08-15 15:44] LABS: Add Urine Microscopic? NO; Appearance Urine Clear (Clear); Bilirubin Urine Negative (Negative); Blood Urine Negative (Negative); Color Urine Yellow (Yellow); Glucose Urine UA Negative (Negative); Ketones Urine Negative (Negative); Leukocyte Esterase Ur Negative LEU/UL (Negative); Nitrate Urine Negative (Negative); Protein Urine Negative (Negative); Specific Grav Ur 1.017 (1.001-1.035); Urobilinogen Urine Negative mg/dL (<2.0)
[2020-08-15 15:51] LABS: Alveolar/Arterial O2 Gradient 51.2 mmHg; Base Excess ABG -1.2 mEq/l (+/-2.0); Carboxyhemoglobin 0.4 % THb (0-2.0); Fractional Inspired Oxygen 21 %; HCO3 ABG 23.9 mEq/l (22.0-26.0); Methemoglobin ABG 0.2 %THb (0-1.5); Oxygen Content ABG 13.7 %vol (16.0-22.0); Oxyhemoglobin 82.4 % THb (90.0-100.0); PCO2 ABG 41.7 mmHg (35.0-45.0); PO2 FiO2 Ratio Arterial Blood 2.31 %; Total Hemoglobin 11.8 g/dL (12.0-18.0); pH ABG 7.377 (7.350-7.450)
[2020-08-15 15:52] LABS: Oxygen Saturation ABG 83.5 % (95.0-100.0); PO2 ABG 48.6 mmHg (80.0-100.0)
[2020-08-15 15:52] LABS: Glucose Point of Care 210 (65-105)
[2020-08-15 15:53] LABS: Device ROOM AIR; Modified Allen's Test Pass; Site Drawn LEFT RADIAL
[2020-08-15 16:12] LABS: Amphetamine Screen Urine Negative (Negative); Barbiturate Screen Urine Negative (Negative); Benzodiazepines Screen Urine Negative (Negative); Cannabinoid Screen Urine Negative (Negative); Cocaine Screen Urine Negative (Negative); Methadone Screen Urine Negative (Negative); Opiate Screen Urine Negative (Negative); Phencyclidine Screen Urine Negative (Negative)
--- NOTE | 2020-08-15 16:33 | ED.GENADULT ---
HPI - General Adult General Chief complaint: Unspecified Stated complaint: I feel like im not getting oxygen to my head Time Seen by Provider: 08/15/20 15:08 Source: patient Mode of arrival: ambulatory Limitations: no limitations History of Present Illness HPI narrative: Patient is a 34-year-old male who presents with some tingling to the left cheek is also had some mild headache also notes cough congestion and some mild body aches patient denies any sick contacts patient has not been seen for this complaint has not taken anything for his symptoms patient notes that he only takes Metformin for his diabetes and has been compliant with this denies other complaints specifically no dyspnea chest pain vomiting or diarrhea on arrival patient presents with normal gait no distress Related Data Home Medications Medication Instructions Recorded Confirmed metformin 1,000 mg PO DAILY 10/21/19 01/10/20 Allergies Allergy/AdvReac Type Severity Reaction Status Date / Time No Known Allergies Allergy Verified 08/15/20 15:06 Review of Systems Review of Systems: All systems reviewed & are unremarkable except as noted in HPI and below PMFSH Past Medical History Medical History Diabetes mellitus Social History Social History Smoking status: Never smoker Substance use: never Gender identity (if verbalized by the patient): Male Exam Narrative: Exam Narrative: GENERAL: Well-appearing, well-nourished, and in no acute distress. HEAD: Normocephalic, atraumatic. EYES: PERRLA and EOMI. ENT: Nares clear, no rhinorrhea or epistaxis. Mucous membranes moist. CHEST: Clear to auscultation. No respiratory distress. No wheezes rales or rhonchi HEART: Regular rate and rhythm. No murmur heard. Normal peripheral pulses. ABDOMEN: Soft, nontender, nondistended, normal active bowel sounds. EXTREMITIES: Normal range of motion. No edema. SKIN: Warm, dry, no rash. NEURO: No focal deficits. Alert and oriented x3. Cranial nerves II through XII grossly intact. Normal speech and gait PSYCH: Normal mood and affect. Course Course Emergency Course: Patient in the room in no distress aware of case findings treatment plan diagnosis agreeing to follow with primary care to obtain his COVID-19 results which will be given for his upper respiratory symptoms patient is otherwise in no distress resting comfortably was hydrated given medications feels comfortable with the plan and able to go home Vital Signs Vital signs: Vital Signs Temperature 98 F 08/15/20 14:28 Pulse Rate 83 08/15/20 14:28 Respiratory Rate 18 08/15/20 14:28 Blood Pressure 147/92 H 08/15/20 14:28 Pulse Oximetry 100 08/15/20 14:28 Temperature 98 F 08/15/20 14:28 Pulse Rate 83 08/15/20 14:28 Respiratory Rate 18 08/15/20 14:28 Blood Pressure 147/92 H 08/15/20 14:28 Pulse Oximetry 100 08/15/20 14:28 Medical Decision Making MDM Narrative Medical decision making narrative: Patient with mild URI symptoms for the last several days tested for COVID-19. There are o focal neurological deficits on exam. Subarachnoid hemorrhage is felt to be unlikey at this time. There is no history of fever, and neck is supple without meningismus, making meningitis unlikely. No pneumonia or hypoxemia on exam or in the vital signs. no traumatic history or signs of trauma on exam. No risk factors for CVA, risk factors reviewed. Patients headache is felt to be a reasonable candidate for outpatient evaluation Vital Signs Vital Signs: Vital Signs Temperature 98 F 08/15/20 14:28 Pulse Rate 83 08/15/20 14:28 Respiratory Rate 18 08/15/20 14:28 Blood Pressure 147/92 H 08/15/20 14:28 Pulse Oximetry 100 08/15/20 14:28 Temperature 98 F 08/15/20 14:28 Pulse Rate 83 08/15/20 14:28 Respiratory Rate 18 08/15/20 14:28 Blood Pressure 147/92 H
[2020-08-15 17:10] VITALS: BP 142/88; PULSE 88; RESP 16; O2SAT 97
[2020-08-16 12:35] LABS: SARS-CoV-2 RNA PCR Negative
== END 2020-08-15 17:15 | disposition home or self-care (01) ==
PROVIDERS: Emergency Medicine Emergency Medical Services; Emergency Provider Emergency Medicine; PCP Internal Medicine
DX: E11.65 Type 2 diabetes mellitus with hyperglycemia (principal); Z20.828 Contact with and (suspected) exposure to other viral communicable diseases; Z79.84 Long term (current) use of oral hypoglycemic drugs
CPT/HCPCS: 36415; 36600; 71045; 80053; 80307; 81003; 82010; 82375; 82805; 82948; 83050; 83735; 84100; 85025; 87635; 96374; 99284; C9803; J1885; J7030; U0003

== ENCOUNTER 2021-01-20 21:06 | Emergency (ER) | payer OTHER, SELFPAY ==
[2021-01-20] VITALS (18 sets, daily range): BP systolic 121–154; BP diastolic 78–118; PULSE 80–90; RESP 17–21; TEMP 36.3; O2SAT 97–99
--- NOTE | ~2021-01-20 | XR_ITS ---
EXAMINATION: XR chest 2V EXAM DATE: 01/20/2021 21:36 INDICATION: Medial chest pain for an hour. History of hypertension. TECHNIQUE: Frontal and lateral projections of the chest obtained and reviewed. Comparison is made to prior examination from 08/15/2020. FINDINGS: The lungs are clear. There are no pleural effusions. The cardiomediastinal silhouette is within normal limits. There is no pneumothorax suspected. The bones and soft tissues are unremarkab le. IMPRESSION: No acute cardiopulmonary findings. Reviewed, dictated and finalized at location A.
--- NOTE | 2021-01-20 21:11 | ECG_ITS ---
Measurements Intervals [place] Rate: 91 P: 34 [place]: 152 QRS: 18 QRSD: 89 T: 4 QT: 339 QTc: 419 Interpretive Statements SINUS RHYTHM NONSPECIFIC T-WAVE ABNORMALITY- INFERIOR LEADS BASELINE ARTIFACT- I, II, AVR, AVL, AVF, V3-V6 BORDERLINE ECG Electronically Signed On 01-21-2021 6:54:32 CDT by Artem Gil D.O.
[2021-01-20 21:37] LABS: Basophils Percent Auto 0.1 % (0.2-1.2); Eosinophils Absolute Auto 0.2 K/mm3 (0-0.3); Eosinophils Percent Auto 2.7 % (0-4.4); Hematocrit 41.2 % (42.0-52.0); Hemoglobin 13.4 g/dL (14.0-18.0); Immature Granulocyte Absolute 0.01 K/mm3 (0.00-0.031); Immature Granulocyte Percent A 0.1 % (0-0.5); Lymphocytes Absolute Auto 3.65 K/mm3 (0.9-3.2); Lymphocytes Percent Auto 51.6 % (18.3-44.2); Mean Corpuscular HGB Conc 32.5 g/dl (32-36); Mean Corpuscular Hemoglobin 26.7 pg (26-34); Mean Corpuscular Volume 82.2 fl (80-100); Monocytes Absolute Auto 0.6 K/mm3 (0.1-0.6); Monocytes Percent Auto 7.8 % (2.6-8.5); Neutrophils Absolute Auto 2.7 K/mm3 (1.3-6.7); Neutrophils Percent Auto 37.7 % (45.5-73.1); Platelet Count Result 327 k/mm3 (150-375); Red Blood Count 5.01 M/mm3 (4.6-6.20); White Blood Count 7.1 K/mm3 (4.5-10.0)
[2021-01-20 21:46] LABS: INR 0.9; Prothrombin Time 13.1 Seconds (11.1-14.7)
[2021-01-20 21:47] LABS: Partial Thromboplastin Time 24.8 SECONDS (22.3-36.8)
[2021-01-20 21:48] LABS: Anion Gap 9 mmol/L (8-16); Blood Urea Nitrogen 12 mg/dL (9-20); Calcium 9.7 mg/dL (8.4-10.2); Carbon Dioxide 29 mmol/L (22-30); Chloride 101 mmol/L (98-107); Estimated CRCL calculation 95 ml/min; Estimated Glomerular Filt Rate > 60; Glucose 328 mg/dL (75-110); Potassium 4.1 mmol/L (3.4-5.0); Sodium 139 mmol/L (137-145)
[2021-01-20 22:00] LABS: Troponin I < 0.012 ng/mL (0.000-0.034)
--- NOTE | 2021-01-20 22:02 | ED.GENADULT ---
HPI - General Adult General Chief complaint: Chest Pain <Starla Costa MD - Last Filed: 02/03/21 12:50> Stated complaint: Pressure on chest x 1 hour ago <Starla Costa MD - Last Filed: 02/03/21 12:50> Time Seen by Provider: 01/20/21 21:15 <Starla Costa MD - Last Filed: 02/03/21 12:50> Source: patient <Starla Costa MD - Last Filed: 02/03/21 12:50> History of Present Illness HPI narrative: Patient is a 35 y/o male complaining of midsternal chest pain starting 2 hours ago. He describes his pain as a pressure and it radiates to his left axilla. He rates his pain as 8/10. He also has some SOB. <Starla Costa MD - Last Filed: 02/03/21 12:50> Related Data Home medications: Home Medications Medication Instructions Recorded Confirmed metformin 1,000 mg PO DAILY 10/21/19 01/10/20 <Starla Costa MD - Last Filed: 02/03/21 12:50> Allergies/adverse reactions: Allergies Allergy/AdvReac Type Severity Reaction Status Date / Time No Known Allergies Allergy Verified 08/15/20 15:06 <Starla Costa MD - Last Filed: 02/03/21 12:50> Review of Systems Constitutional: Constitutional: Denies chills, Denies fever(s), Denies headache(s) and Denies weakness <Starla Costa MD - Last Filed: 02/03/21 12:50> Eyes: Eyes: Denies blurry vision <Starla Costa MD - Last Filed: 02/03/21 12:50> ENT: Denies headache(s) and Denies neck pain <Starla Costa MD - Last Filed: 02/03/21 12:50> Cardiovascular: Cardiovascular: Reports chest pain and Reports dyspnea <Starla Costa MD - Last Filed: 02/03/21 12:50> Respiratory: Respiratory: Denies cough and Reports dyspnea <Starla Costa MD - Last Filed: 02/03/21 12:50> Gastrointestinal: Gastrointestinal: Denies abdominal pain, Denies diarrhea, Denies nausea and Denies vomiting <Starla Costa MD - Last Filed: 02/03/21 12:50> Genitourinary: Genitourinary: Denies hematuria and Denies dysuria <Starla Costa MD - Last Filed: 02/03/21 12:50> Musculoskeletal: Musculoskeletal: Denies back pain and Denies neck pain <Starla Costa MD - Last Filed: 02/03/21 12:50> Neurologic: Denies headache(s) and Denies weakness <Starla Costa MD - Last Filed: 02/03/21 12:50> [facility] Past Medical History Medical History: Medical History Diabetes mellitus <Starla Costa MD - Last Filed: 02/03/21 12:50> Social History Social History: Social History Smoking status: Never smoker Substance use: never Gender identity (if verbalized by the patient): Male <Starla Costa MD - Last Filed: 02/03/21 12:50> Exam Const: General: no acute distress and well developed <Starla Costa MD - Last Filed: 02/03/21 12:50> Orientation/consciousness: oriented to person, oriented to place, oriented to time and patient oriented x3 <Starla Costa MD - Last Filed: 02/03/21 12:50> HENMT: Head: normocephalic <Starla Costa MD - Last Filed: 02/03/21 12:50> Ears: external ears normal <Starla Costa MD - Last Filed: 02/03/21 12:50> General nose exam: Normal external nose present <Starla Costa MD - Last Filed: 02/03/21 12:50> Eyes: General: appearance normal, both eyes and all related structures <Starla Costa MD - Last Filed: 02/03/21 12:50> Conjunctivae: conjunctivae normal <Starla Costa MD - Last Filed: 02/03/21 12:50> Neck: Neck: normal visual inspection and full ROM <Starla Costa MD - Last Filed: 02/03/21 12:50> Chest: Chest palpation & inspection: normal inspection of the chest and no tenderness <Starla Costa MD - Last Filed: 02/03/21 12:50> Resp: Effort & Inspection: normal respiratory effort <Starla Costa MD - Last Filed: 02/03/21 12:50> Auscultation: clear to auscultation bilaterally <Starla Costa MD - Last Filed: 02/03/21 12:50> Cardio: Rate: regular rate <Starla Costa MD - Last Filed: 02/03/21 12:50> Rhythm: regu
[2021-01-20 22:15] LABS: D Dimer 0.27 ug/mL (<0.48)
[2021-01-20] MEDS: ASPIRIN 81 MG CHEWABLE TABLET 324 MG PO (22:19)
[2021-01-21] VITALS: O2SAT 100
[2021-01-21 00:01] VITALS: BP 125/80; O2SAT 100
[2021-01-21 00:15] VITALS: BP 119/72; O2SAT 100
[2021-01-21 00:16] VITALS: O2SAT 100
[2021-01-21 00:30] VITALS: O2SAT 99
[2021-01-21 00:45] LABS: Troponin I < 0.012 ng/mL (0.000-0.034)
[2021-01-21 01:02] VITALS: O2SAT 98
== END 2021-01-21 01:25 | disposition home or self-care (01) ==
PROVIDERS: Emergency Medicine; Emergency Provider Emergency Medicine
DX: R07.9 Chest pain, unspecified (principal)
CPT/HCPCS: 36415; 71046; 80048; 84484; 85025; 85380; 85610; 85730; 93005; 99284; A9270

== ENCOUNTER 2021-02-06 18:45 | Emergency (ER) | payer OTHER, SELFPAY ==
[2021-02-06 18:47] VITALS: BP 150/95; PULSE 80; RESP 20; TEMP 36.8; O2SAT 100
[2021-02-06 18:55] LABS: Glucose Point of Care 259 mg/dl (65-105)
[2021-02-06 18:59] LABS: Basophils Percent Auto 0.3 % (0.2-1.2); Eosinophils Absolute Auto 0.2 K/mm3 (0-0.3); Eosinophils Percent Auto 2.2 % (0-4.4); Hematocrit 40.4 % (42.0-52.0); Immature Granulocyte Absolute 0.02 K/mm3 (0.00-0.031); Immature Granulocyte Percent A 0.3 % (0-0.5); Lymphocytes Absolute Auto 2.96 K/mm3 (0.9-3.2); Lymphocytes Percent Auto 39.8 % (18.3-44.2); Mean Corpuscular HGB Conc 32.2 g/dl (32-36); Mean Corpuscular Hemoglobin 26.7 pg (26-34); Mean Corpuscular Volume 83.1 fl (80-100); Mean Platelet Volume 10.4 fl (7.4-10.4); Monocytes Absolute Auto 0.6 K/mm3 (0.1-0.6); Monocytes Percent Auto 8.3 % (2.6-8.5); Neutrophils Absolute Auto 3.7 K/mm3 (1.3-6.7); Neutrophils Percent Auto 49.1 % (45.5-73.1); Platelet Count Result 292 k/mm3 (150-375); Red Blood Count 4.86 M/mm3 (4.6-6.20); Red Cell Distribution Width 12.8 % (11.5-14.5); White Blood Count 7.4 K/mm3 (4.5-10.0)
[2021-02-06 19:11] LABS: Alanine Aminotransferase 42 U/L (4-50); Albumin Level 4.5 g/dL (3.5-5.1); Alkaline Phosphatase 59 U/L (38-126); Anion Gap 10 mmol/L (8-16); Aspartate Amino Transferase 33 U/L (17-59); Bilirubin,Total 0.6 mg/dL (0.2-1.3); Blood Urea Nitrogen 16 mg/dL (9-20); Calcium 9.5 mg/dL (8.4-10.2); Carbon Dioxide 26 mmol/L (22-30); Chloride 103 mmol/L (98-107); Estimated CRCL calculation 61 ml/min; Estimated Glomerular Filt Rate > 60; Glucose 280 mg/dL (75-110); Magnesium 1.7 mg/dL (1.6-2.3); Phosphorus 2.8 mg/dL (2.5-4.5); Sodium 139 mmol/L (137-145)
[2021-02-06 19:15] LABS: Beta-Hydroxybutyrate/Acetoacetate 0.28 mmol/L (0.02-0.27)
--- NOTE | 2021-02-06 23:05 | ED.GENADULT ---
HPI - General Adult General Chief complaint: Recheck/Abnormal Lab/Rx Stated complaint: blood sugar high Time Seen by Provider: 02/06/21 23:05 Source: patient Mode of arrival: ambulatory Limitations: no limitations History of Present Illness HPI narrative: Patient is a 35-year-old male complaining of elevated blood sugar at home, 359 . Patient has history of [id number] diabetes, takes Metformin. Patient denies any chest pain, shortness of breath abdominal pain, nausea, vomiting, diarrhea, fever, chills or urinary symptoms. Patient has no other complaints. Related Data Home Medications Medication Instructions Recorded Confirmed metformin 1,000 mg PO DAILY 10/21/19 01/10/20 Allergies Allergy/AdvReac Type Severity Reaction Status Date / Time No Known Allergies Allergy Verified 08/15/20 15:06 Review of Systems Review of Systems: All systems reviewed & are unremarkable except as noted in HPI and below Constitutional: Constitutional: Denies body ache(s), Denies chills, Denies excessive sweating, Denies fatigue, Denies fever(s), Denies headache(s), Denies lethargy, Denies malaise, Denies weakness and Denies weight loss Eyes: Eyes: Denies blurry vision, Denies change in vision and Denies loss of vision ENT: Denies dizziness, Denies ear discharge, Denies headache(s), Denies lip swelling, Denies epistaxis, Denies nasal congestion, Denies neck pain, Denies throat swelling and Denies tongue swelling Cardiovascular: Cardiovascular: Denies chest pain, Denies chest pain at rest, Denies chest pain with activity, Denies diaphoresis, Denies rapid heart rate, Denies edema, Denies irregular heart rhythm, Denies lightheadedness, Denies palpitations, Denies dyspnea and Denies dyspnea on exertion Respiratory: Respiratory: Denies chest congestion, Denies cough, Denies hemoptysis, Denies dyspnea and Denies dyspnea on exertion Gastrointestinal: Gastrointestinal: Denies abdominal pain, Denies melena, Denies hematochezia, Denies diarrhea, Denies nausea, Denies vomiting and Denies hematemesis Musculoskeletal: Musculoskeletal: Denies abnormal gait, Denies deformity, Denies joint swelling, Denies limited range of motion, Denies neck pain and Denies numbness Neurologic: Denies Abnormal speech present, Denies abnormal gait, Denies confusion, Denies dizziness, Denies headache(s), Denies focal weakness, Denies loss of vision, Denies numbness, Denies Other visual disturbances, Denies Sensory deficit (Neuro) and Denies weakness Psychiatric: Psychiatric: Denies confusion, Denies depression, Denies auditory hallucinations, Denies homicidal ideation and Denies suicidal ideation Endocrine: Endocrine: Denies cold intolerance, Denies excessive sweating, Denies fatigue, Denies heat intolerance and Denies palpitations Hematologic/Lymphatic: Hematologic/Lymphatic: Denies easy bleeding and Denies easy bruising Allergic/Immunologic: Allergic/Immunologic: Denies lip swelling, Denies throat swelling and Denies tongue swelling PMFSH Past Medical History Medical History Diabetes mellitus Social History Social History Smoking status: Never smoker Substance use: never Gender identity (if verbalized by the patient): Male Comments Past medical history: [id number] diabetes Family history: Diabetes Social history: Non-smoker no EtOH or drug use Exam Const: General: cooperative, healthy appearing, comfortable, no acute distress, well developed, alert and awake; No confusion Orientation/consciousness: oriented to person, oriented to place, oriented to time, patient oriented x3 and No confusion Limitations: no limitations HENMT: Head: normal to inspection, normocephalic and atraumatic Ears: hearing grossly normal bilaterally, TM normal on the right and TM normal on the left General nose exam: Normal external nose present, Normal nares pre
[2021-02-06] MEDS: LACTATED RINGERS 1,000 ML 999 ML IV CONT (23:29)
[2021-02-07] LABS: Glucose Point of Care 262 mg/dl (65-105)
== END 2021-02-07 00:59 | disposition home or self-care (01) ==
PROVIDERS: Emergency Provider Emergency Medicine
DX: E11.65 Type 2 diabetes mellitus with hyperglycemia (principal); Z79.84 Long term (current) use of oral hypoglycemic drugs
CPT/HCPCS: 36415; 80053; 82010; 82948; 83735; 84100; 85025; 96360; 99283; J7120

== ENCOUNTER 2022-01-10 14:19 | Emergency (ER) | payer SELFPAY ==
--- NOTE | ~2022-01-10 | XR_ITS ---
XR chest 2V DATE: 01/10/2022 15:17 INDICATION: Chest pain for one day. History of hypertension and diabetes. TECHNIQUE: PA and lateral views COMPARISON: 01/20/2021 PA and lateral chest FINDINGS: Normal heart size. No hilar or mediastinal enlargement. No pulmonary infiltrate or consolid ation, pleural effusion or pulmonary vascular congestion or pneumothorax. Included skeletal structure s are unremarkable. IMPRESSION: No active cardiopulmonary disease Reviewed, dictated and finalized at location A.
[2022-01-10 14:26] VITALS: BP 138/93; PULSE 84; RESP 18; TEMP 36.3; O2SAT 100
--- NOTE | 2022-01-10 14:26 | ECG_ITS ---
Measurements Intervals [place] Rate: 80 P: 32 IA: 159 QRS: 15 QRSD: 85 T: 15 QT: 348 QTc: 402 Interpretive Statements SINUS RHYTHM DELAYED PRECORDIAL R/S TRANSITION BORDERLINE ECG Electronically Signed On 01-10-2022 16:31:15 CDT by Artem Gil D.O.
[2022-01-10 14:38] LABS: Basophils Percent Auto 0.5 % (0.2-1.2); Eosinophils Absolute Auto 0.2 K/mm3 (0-0.3); Eosinophils Percent Auto 2.6 % (0-4.4); Hematocrit 41.3 % (42.0-52.0); Hemoglobin 12.9 g/dL (14.0-18.0); Immature Granulocyte Absolute 0.04 K/mm3 (0.00-0.031); Immature Granulocyte Percent A 0.7 % (0-0.5); Lymphocytes Percent Auto 40.7 % (18.3-44.2); Mean Corpuscular HGB Conc 31.2 g/dl (32-36); Mean Corpuscular Hemoglobin 26.3 pg (26-34); Mean Corpuscular Volume 84.1 fl (80-100); Mean Platelet Volume 10.3 fl (7.4-10.4); Monocytes Absolute Auto 0.5 K/mm3 (0.1-0.6); Monocytes Percent Auto 7.6 % (2.6-8.5); Neutrophils Percent Auto 47.9 % (45.5-73.1); Platelet Count Result 347 k/mm3 (150-375); Red Blood Count 4.91 M/mm3 (4.6-6.20); Red Cell Distribution Width 13.3 % (11.5-14.5); White Blood Count 6.2 K/mm3 (4.5-10.0)
[2022-01-10 14:54] LABS: Alanine Aminotransferase 32 U/L (4-50); Albumin Level 4.8 g/dL (3.5-5.1); Alkaline Phosphatase 60 U/L (38-126); Anion Gap 10 mmol/L (8-16); Aspartate Amino Transferase 28 U/L (17-59); Bilirubin,Total 0.3 mg/dL (0.2-1.3); Blood Urea Nitrogen 16 mg/dL (9-20); Calcium 9.2 mg/dL (8.4-10.2); Carbon Dioxide 25 mmol/L (22-30); Chloride 100 mmol/L (98-107); Estimated CRCL calculation 55 ml/min; Estimated Glomerular Filt Rate 59; Glucose 346 mg/dL (65-110); Lipase 131 U/L (23-300); Partial Thromboplastin Time 24.9 SECONDS (22.3-36.8); Potassium 4.7 mmol/L (3.4-5.0); Prothrombin Time 12.9 Seconds (11.1-14.7); Sodium 135 mmol/L (137-145)
[2022-01-10 15:05] LABS: Troponin I < 0.012 ng/mL (0.000-0.034)
--- NOTE | 2022-01-10 15:08 | ED.CHESTPAIN ---
HPI - Chest Pain General Chief Complaint: Chest Pain Stated Complaint: Chest Pain Time Seen by Provider: 01/10/22 15:04 Source: patient History of Present Illness HPI narrative: 36 years old -[place] male presents to the ED with intermittent left chest sharp pain radiating to left biceps started 4 days ago, has been almost constant since over the last 4 hours, at rest, patient denies aggravating or relieving factors. Patient denies shortness of breath. History of diabetes and hypertension, no smoking no drinking no drug use or abuse. No family history of coronary artery disease. 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 Denies anything different lately. Patient and have kids, lives alone. Currently patient complaining of stuffy nose going to his head started 1 hour prior to arrival to the emergency room. He denies any fever, chills, nausea, vomiting, shortness of breath, radiation of pain or back pain Related Data Home Medications Medication Instructions Recorded Confirmed metformin 1,000 mg PO DAILY 10/21/19 01/10/20 Allergies Allergy/AdvReac Type Severity Reaction Status Date / Time No Known Allergies Allergy Verified 08/15/20 15:06 Review of Systems Review of Systems: CONSTITUTIONAL: Denies fever, chills, or sweats. EYES: Denies visual changes, redness, or discharge. ENT: Denies rhinorrhea, congestion, sore throat, or otalgia. CARDIOVASCULAR: Denies chest pain, palpitations, or edema. RESPIRATORY: Denies cough or dyspnea. GASTROINTESTINAL: Denies abdominal pain, nausea, vomiting, or diarrhea. GENITOURINARY: Denies dysuria or hematuria. SKIN: Denies rash or itching. MUSCULOSKELETAL: Denies back pain, joint pain, or myalgia. NEUROLOGIC: Denies headache, numbness, or weakness. PSYCHIATRIC: Denies anxiety or depression. PMFSH Past Medical History Medical History Diabetes mellitus Social History Social History Smoking status: Never smoker Substance use: never Gender identity (if verbalized by the patient): Male Exam Narrative: General appearance: Well-developed, well-nourished Skin: Normal color Head: Normocephalic, nontraumatic Eyes: Clear conjunctiva ENT: Oropharynx normal, ears normal, nose normal Neck: Supple, nontender Chest and respiratory: Airway patent, no respiratory distress, no accessory muscle use. Moderate to severe tenderness left chest with light palpation, left side of back, no rash, no swelling, no bruises. Heart: Regular rate/rhythm Abdomen: Soft, nontender, no organomegaly, quiet bowel sounds Vascular: Normal peripheral pulses, normal capillary refill. Musculoskeletal: Normal range of motion, nontender back Neurologic: Alert and oriented ?3, REFRIGERATION SPECIALIST is normal as tested, no gross motor deficit Course Course Emergency Course: Stable, Musculoskeletal pain is my concern. Vital Signs Vital signs: Vital Signs Temperature 36.3 C L 01/10/22 14:26 Pulse Rate 84 01/10/22 14:26 Respiratory Rate 18 01/10/22 14:26 Blood Pressure 138/93 H 01/10/22 14:26 Pulse Oximetry 100 01/10/22 14:26 Temperature 36.3 C L 01/10/22 16:29 Pulse Rate 78 01/10/22 18:26 Respiratory Rate 16 01/10/22 18:26 Blood Pressure 128/91 H 01/10/22 18:26 Pulse Oximetry 100 01/10/22 18:26 MDM - Chest Pain MDM Narrative Medical decision making narrative: Differential diagnosis as below Differential Diagnosis Differential diagnosis: Likely atypical chest pain, costochondritis and chest pain Lab Data Result diagrams: 01/10/22 14:29 01/10/22 14:29 Becka
[2022-01-10 15:36] VITALS: PULSE 86
[2022-01-10] MEDS: SODIUM CHLORIDE 0.9% IV 1,000 ML 999 ML IV CONT (15:58)
[2022-01-10] MEDS: INSULIN HUMAN REGULAR (*BKC) 100 UNITS/ML SUB-Q (15:59)
[2022-01-10] MEDS: KETOROLAC 30 MG/ML VIAL (*BKC) IV PUSH (15:59)
[2022-01-10 16:05] VITALS: BP 131/97; PULSE 74; RESP 19; O2SAT 99
[2022-01-10 16:29] VITALS: TEMP 36.3
--- NOTE | 2022-01-10 17:18 | PC.NURSE ---
Per THOMAS Roth, recheck blood sugar when normal saline infuses.
--- NOTE | 2022-01-10 17:30 | PC.NURSE ---
IV fluids finished. Patient bending arm during bolus.
[2022-01-10 17:50] LABS: Troponin I < 0.012 ng/mL (0.000-0.034)
[2022-01-10 18:09] LABS: Glucose Point of Care 238 mg/dl (65-105)
[2022-01-10 18:26] VITALS: BP 128/91; PULSE 78; RESP 16; O2SAT 100
--- NOTE | 2022-01-10 18:28 | PC.NURSE ---
Per EDP bill Roth to discharge patient following blood sugar recheck.
== END 2022-01-10 18:28 | disposition home or self-care (01) ==
PROVIDERS: Emergency Medicine; Emergency Provider Emergency Medicine
DX: R07.9 Chest pain, unspecified (principal); E11.65 Type 2 diabetes mellitus with hyperglycemia; E86.0 Dehydration; I10 Essential (primary) hypertension
CPT/HCPCS: 36415; 71046; 80053; 82948; 83690; 84484; 85025; 85610; 85730; 93005; 96361; 96374; 99284; J1815; J1885; J7030

== ENCOUNTER 2023-07-22 07:41 | Emergency (ER) | payer SELFPAY ==
--- NOTE | ~2023-07-22 | XR_ITS ---
EXAMINATION: XR chest 1V portable INDICATION: Chest pain TECHNIQUE: Portable AP chest at 0931 hours COMPARISON: 01/10/2022 FINDINGS: The lungs are free of acute opacities. No pleural effusion or pneumothorax. The cardiomedia stinal silhouette is normal. The visualized osseous structures are unremarkable. IMPRESSION: 1. No acute cardiopulmonary abnormality. Reviewed, dictated and finalized at location B. ICAL CARE UNIT MANAGER
[2023-07-22 07:46] VITALS: BP 160/118; PULSE 99; RESP 18; TEMP 36.6; O2SAT 100
--- NOTE | 2023-07-22 07:49 | ECG_ITS ---
Measurements Intervals [place] Rate: 91 P: 27 DE: 144 QRS: -19 QRSD: 82 T: -2 QT: 339 QTc: 419 Interpretive Statements SINUS RHYTHM POSSIBLE LEFT ATRIAL ENLARGEMENT CONSIDER INFERIOR INFARCT, AGE INDETERMINATE ABNORMAL ECG COMPARED TO ECG 01/10/2022 14:24:03 NO SIGNIFICANT CHANGES Electronically Signed On 07-22-2023 8:34:22 ENVIRONMENTAL ATTORNEY by Artem Gil D.O.
--- NOTE | 2023-07-22 07:53 | ED.RECABL ---
HPI - Recheck/Abnormal Lab/Rx General Chief Complaint: Recheck/Abnormal Lab/Rx Stated Complaint: blood Pressure high, elevated bs Time Seen by Provider: 07/22/23 07:47 History of Present Illness HPI narrative: Patient with history of diabetes, hypertension, on insulin, presents here with high blood sugar and hypertension, states that his blood sugars at home have been in the 400s, he is here for a few months from [place] and has not had access to insulin here because he does not have a doctor, has not taken insulin in a month, but will go back to his home state until end of August. Last few days has been having some intermittent chest discomfort. Related Data Allergies Allergy/AdvReac Type Severity Reaction Status Date / Time No Known Allergies Allergy Verified 07/22/23 07:51 Review of Systems Review of Systems: All systems reviewed & are unremarkable except as noted in HPI and below PMFSH Past Medical History Medical History Diabetes mellitus Social History Social History Smoking status: Never smoker Substance use: never Gender identity (if verbalized by the patient): Male Exam Narrative: EXAMINATION OF ORGAN SYSTEMS/BODY AREAS: Constitutional: Vital signs per nursing GENERAL:[No acute distress, non-toxic appearing.] HEAD: Normal with no signs of head trauma. EYES: EOMI, conjunctiva normal ENT: Hearing grossly intact LUNGS: Nonlabored breathing. CTAB. HEART: [Regular rate and rhythm] ABD: [Soft], [nontender to palpation] EXT: Normal range of motion SKIN: [No rashes or lesions.] NEURO: [Alert and oriented x 3. No gross focal sensory or strength deficits.] PSYCH: Normal affect Course Vital Signs Vital signs: Vital Signs Temperature 97.8 F 07/22/23 07:46 Pulse Rate 99 07/22/23 07:46 Respiratory Rate 18 07/22/23 07:46 Blood Pressure 160/118 H 07/22/23 07:46 Pulse Oximetry 100 07/22/23 07:46 Temperature 97.8 F 07/22/23 07:46 Pulse Rate 99 07/22/23 07:46 Respiratory Rate 18 07/22/23 07:46 Blood Pressure 160/118 H 07/22/23 07:46 Pulse Oximetry 100 07/22/23 07:46 MDM - Recheck/Abnormal Lab/Rx MDM Narrative Medical decision making narrative: Patient with uncontrolled hypertension and diabetes presents here for hyper sugar and hypertension, he has been out of his medications for a month since he moved here, he has no symptoms or complaints other than some mild chest discomfort for the last few days. 1) Differential diagnosis: ACS, pneumonia, HHNK/DKA 2) Comorbidities: Diabetes, hypertension 3) External notes reviewed: Prior ER notes, office visit notes 4) History sources independently obtained from: n/a 5) Discussion of management with: n/a 6) Independent interpretation of: EKG - 12-Lead: Performed at 0756. Interpreted by me. [Sinus rhythm]. Rate 91. [Normal] axis. ND-interval [normal]. QRS duration [normal]. QTc [normal]. [No ST segment elevation or depression]. [T-wave normal]. Impression: No EKG evidence of acute ischemia or dysrhythmia. CXR: no obvious consolidation or pneumothorax 7) Diagnostic tests or therapies considered but not ordered: n/a 8) Social determinants of health: No PCP/does not live here 9) Shared decision making: Glucose elevated w/o signs of DKA, neg ketones, trop neg; IVF given and dose of insulin and I will refill his insulin and lisinopril. Long discussion with pt and I did stress importance of taking meds and avoiding uncontrolled BG/HTN due to multiple issues including blindness, neuropathy and poor wound healing leading to amputations, kidney disease requiring dialysis, increased risks of stroke and heart disease. PCP info given. Return precautions discussed. Lab Data 07/22/23 08:14 07/22/23 08:14 Labs: Lab Results 07/22/23 07/22/23 Range/Units 07:57 08:14 WBC 7.4 (4.5-10.0) K/mm3
[2023-07-22 08:00] LABS: Glucose Point of Care 351 mg/dl (65-105)
[2023-07-22] MEDS: LACTATED RINGERS 1,000 ML 999 ML IV CONT (08:11)
[2023-07-22 08:23] LABS: Basophils Percent Auto 0.3 % (0.2-1.2); Eosinophils Absolute Auto 0.2 K/mm3 (0-0.3); Eosinophils Percent Auto 2.7 % (0-4.4); Hematocrit 43.8 % (42.0-52.0); Immature Granulocyte Absolute 0.01 K/mm3 (0.00-0.031); Immature Granulocyte Percent A 0.1 % (0-0.5); Lymphocytes Absolute Auto 2.49 K/mm3 (0.9-3.2); Lymphocytes Percent Auto 33.6 % (18.3-44.2); Mean Corpuscular Hemoglobin 26.9 pg (26-34); Mean Corpuscular Volume 84.1 fl (80-100); Mean Platelet Volume 10.9 fl (7.4-10.4); Monocytes Absolute Auto 0.7 K/mm3 (0.1-0.6); Monocytes Percent Auto 9.6 % (2.6-8.5); Neutrophils Percent Auto 53.7 % (45.5-73.1); Platelet Count Result 347 k/mm3 (150-375); Red Blood Count 5.21 M/mm3 (4.6-6.20); Red Cell Distribution Width 13.2 % (11.5-14.5); White Blood Count 7.4 K/mm3 (4.5-10.0)
[2023-07-22 08:30] LABS: Appearance Urine Clear (Clear); Bacteria Urine None Seen /hpf; Bilirubin Urine Negative (Negative); Blood Urine Negative (Negative); Color Urine Yellow (Yellow); Glucose Urine UA 3+ mg/dL (Negative); Ketones Urine Negative (Negative); Leukocyte Esterase Ur Negative LEU/UL (Negative); Nitrate Urine Negative (Negative); Non Pathogenic Casts 0-2; Protein Urine Trace mg/dL (Negative); RBC Urine 0-2 /hpf (0-2); Squamous Epithelial Cell Urine None seen /hpf (Few); Urobilinogen Urine 0.2 mg/dL (<2.0); WBC Urine 0-5 /hpf; pH Urine 5.5 (5.0-9.0)
[2023-07-22 08:34] LABS: Alanine Aminotransferase 62 U/L (6-50); Albumin Level 4.8 g/dL (3.5-5.1); Alkaline Phosphatase 70 U/L (38-126); Anion Gap 11 mmol/L (8-16); Aspartate Amino Transferase 60 U/L (17-59); Bilirubin,Total 0.7 mg/dL (0.2-1.3); Blood Urea Nitrogen 14 mg/dL (9-20); Calcium 9.5 mg/dL (8.4-10.2); Carbon Dioxide 26 mmol/L (22-30); Chloride 99 mmol/L (98-107); Estimated CRCL calculation 104 ml/min; Estimated Glomerular Filt Rate > 60; Glucose 338 mg/dL (65-110); Phosphorus 3.4 mg/dL (2.5-4.5); Potassium 4.3 mmol/L (3.4-5.0); Sodium 136 mmol/L (137-145)
[2023-07-22 08:42] LABS: Specific Grav Ur 1.042 (1.001-1.035)
[2023-07-22 08:43] LABS: Add Urine Microscopic? YES
[2023-07-22 08:44] LABS: NT Pro B Type Natriuretic Pept < 20 pg/mL (19.9-100); Troponin I < 0.012 ng/mL (0.000-0.034)
[2023-07-22 08:53] LABS: Beta-Hydroxybutyrate/Acetoacetate 0.12 mmol/L (0.02-0.27)
[2023-07-22] MEDS: INSULIN HUMAN REGULAR (*BKC) 100 UNITS/ML 10 UNITS SUB-Q (09:16)
[2023-07-22 10:05] VITALS: BP 149/111; PULSE 70; RESP 18; O2SAT 100
[2023-07-22 10:05] LABS: Glucose Point of Care 290 mg/dl (65-105)
== END 2023-07-22 10:05 | disposition home or self-care (01) ==
PROVIDERS: Emergency Provider Emergency Medicine
DX: E11.65 Type 2 diabetes mellitus with hyperglycemia (principal); I10 Essential (primary) hypertension; Z76.0 Encounter for issue of repeat prescription
CPT/HCPCS: 36415; 71045; 80053; 81001; 82010; 82948; 83735; 83880; 84100; 84484; 85025; 93005; 96360; 99283; J1815; J7120

== ENCOUNTER 2025-08-31 08:46 | Emergency (ER) | payer OTHER, SELFPAY ==
--- NOTE | ~2025-08-31 | XR_ITS ---
XR lumbar spine 2-3V 08/31/2025 10:18 Indication: Low back pain Procedure: 3 views lumbar spine Comparison: No prior studies for comparison. Findings: Vertebral body heights are maintained. No fracture, subluxation or dislocation. No evidence for spondylolisthesis. Normal lumbar alignment. Impression: 1: No acute abnormality of the lumbar spine. Reviewed, dictated and finalized at location O. [employer] Impression: 1: No acute abnormality of the lumbar spine.
--- OUTSIDE RECORDS SUMMARY | 2025-08-31 08:50 | XMS_ITS | Clinical Summary ---
Author Organization [facility] Address Formerly [facility] [place] [address] Care Team Providers Care Chilling Hood Operator Name Role Phone Unavailable Primary Care Provider Unavailabl e Social History Tobacco Use Types Packs/Day Years Used Date Smoking Tobacco: Never Assessed Sex and Gender Information Value Date Recorded Sex Assigned at Not on file Legal Sex Male 4:43 PM CDT Gender Identity Not on file Sexual Orientation Not on file Plan of Treatment Health Maintenance Due Date Last Done Comments Annual Physical 1986 Hepatitis C 2001 DTaP, Tdap and Td Vaccines ( 1 - Tdap) 2002 Hepatitis B Vaccines (1 of 3 - 19+ 3-dose series) 2002 HPV Vaccines (1 - 3-dose SCD M series) 2010 COVID-19 Vaccine (2024-2 6 season) 2025 Influenza Adult (#1) 2025 Hepatitis A Vaccines Aged Out No long er eligible based on patient's age to complete this topic Meningococcal B Vaccine Aged Out No l onger eligible based on patient's age to complete this topic Meningococcal Vaccine Aged Out No karol sandra eligible based on patient's age to complete this topic Pneumococcal Vaccine: Pediat rics (0 to 5 Years) and At-Risk Patients (6 to 49 Years) Aged Out No longer eligible b ased on patient's age to complete this topic RSV Immunizations Under 20 Months Aged Out No longer eligible based on patient's age to complete this topic
--- OUTSIDE RECORDS SUMMARY | 2025-08-31 08:50 | XMS_ITS | Patient Health Record ---
Author Organization [facility] Address [address] [place] [address] Care Team Providers Care Wedding Consultant Name Role Phone NATE VILLEGAS Primary Care Provider [phone] Allergies No Known Allergies Reason For Referral No Information Medications Medication SIG (Take, Route, Frequency, Duration) Notes Start Date End Date Status Crestor 10 MG Tablet 1 tablet Orally Onc e a day; Duration: 90 day(s) 05/21/2021 Unknown Lantus SoloStar 100 UNIT/ML Solution Pen-injector 24 units Subcutaneous At bed time; Duration: 90 days 05/21/2021 Active metFORMIN HCl 1000 MG Tablet 1 tablet with meals Orally Twice a day; Duration: 90 days Active valACYclovir HCl 500 MG Tablet 1 tablet Orally Once a day; Duration: 30 days Active Fish Oil 1000 MG Capsule 2 capsules Oral ly Once a day; Duration: 90 days 10/27/2021 Unknown Pen [place] 5/16 31G X 8 MM Miscellaneous as directed; Duration: 90 days 05/21/2021 Active Lisinopril 20 MG Tablet 1 tablet Orally Once a day; Duration: 90 days Active Social History Tobacco Use: Social History Observation Description Date Details (start date - stop date) Former Smoker NA - NA Social History Tobacco Use: Social Info Question Answer Notes Tobacco Use/Smoking Are you a former smoker Problems Problem Type SNOMED Code ICD Code Onset Dates Problem Status W/U Status Risk Notes Problem Herpes simplex viral infection (06703601) Herpesviral infection, unspecified (B00.9) Active confirmed New problem, no further work up needed Problem Paresthesia (finding) (86073616) Paresthesia of skin (R20.2) Active confirmed Problem Vitamin D deficiency (89603920) Vitamin D deficiency (E55.9) Active confirmed Problem Insomnia (740473510) Insomnia, unspecified type (G47.00) Active confirmed Problem Blood in stool (877831730) Blood in stool (K92.1) Active confirmed New problems, w/u needed Problem Hyperlipidaemia (03083913) Hyperlipidemia, unspecified hyperlipidemia type (E78.5) Active confirmed Problem Penile pain (820941467) Penile pain (N48.89) Active confirmed Problem Essential hypertension (93187543) Hypertension, unspecified type (I10) Active confirmed Establish ed, stable Problem Type II diabetes mellitus without complication (085940316) Type 2 diabetes mellitus without complication, unspecified whether group home insulin use (E11.9) Active confirmed Estabishe d, w/u needed Problem Noncompliance with medication regimen (finding) (168091768) Non compliance w medication regimen (Z91.14) Active confirmed Plan Of Treatment Pending Test Test Name Order Date Herpes Simplex Virus I/II, IgG URINE DIPSTICK 10/12/2021 EKG 05/07/2021 Glucose Check 05/21/2021 Glucose Check 05/07/2021 Herpes Simplex I/II, IgM 05/21/2021 Comprehensive Metabolic Panel w/eGFR Comprehensive Metabolic Panel w/eGFR 05/2022 Lipid Panel (SQL) (LC) 05/21/2022 Lipid Panel (SQL) () 10/12/2021 RPR Screen w/Reflex RPR Titer and FTA An tibodies (SQL) 05/21/2021 CBC w/ Differential, w/ Platelet (SQL) ( LC) 10/12/2021 CBC w/ Differential, w/ Platelet (SQL) ( ) 05/21/2022 HIV 1/O/2 Screen w/Reflex HIV-1 WB 10/12 HIV 1/O/2 Screen w/Reflex HIV-1 WB 05/21 Vitamin B12 and Folate (SQL) (LC) 2021 TSH with Reflex Free T4 (SQL) (LC) 10/12 TSH with Reflex Free T4 (SQL) (LC) 05/21 Hemoglobin A1c With eAG (SQL) (LC) 05/21 Hemoglobin A1c With eAG (SQL) (LC) 10/12 DO NOT USE Microalb/Creat Ratio, Randm U r 05/21/2021 DO NOT USE Microalb/Creat Ratio, Randm U r 05/21/2022 TSH+Free T4 05/07/2021 urine chlamydia 05/21/2021 urine gonorrhea 05/21/2021 Urinalysis 10/12/2021 Medications Administered Medication Instructions Date of Administration Dosage Notes Ceftriaxone 10/12/2021 1 g lot: [id number] [facility]: [id number] Medical (General) History Medical History History ICD Code high cholesterol diabetes HTN Surgical History Surgery Date(Month/Year)
--- OUTSIDE RECORDS SUMMARY | 2025-08-31 08:50 | XMS_ITS | Data Portability ---
[facility] [address] [place] [address] Care Team Providers Care Machine Dyer Name Role Phone JOY HI Primary Care Provider [phone] Assessment No assessment recorded. Plan of Treatment Reminders Order Date Submit Date Provider Last Modified By Organization Details Last Modified Time Details Appointments None recorded . Lab HbA1c (hemoglo bin A1c), blood 2020 021 [facility] In-Office Order, Internal Use Only DO Not Attach Compendium DO Not Attach Compendium, Do Not Delete/merge, [id number] 13:22:44 noninvas danielle colorect al cancer DNA + occult blood screenin g, stool 2020 [facility], [address], [address], [place], [address], 2 07:24:12 HIV 1+2 AB + HIV 1 p24 Ag, qualitat danielle immunoas say, serum 2020 021 [facility], [address], [address], [place], [address], 1 06:11:38 hsv (1+2) igg Ab, serum 2020 021 [facility], [address], [address], [place], [address], 06:11:36 CT + NG RNA, PCR, unspecif ied specimen 2020 [facility], [address], [address], [place], [address], 06:11:35 RPR (rapid plasma reagin), serum 2020 [facility], [address], [place], [address], 06:11:37 HBsAg (hepatit is B surface Ag), EIA, serum 2020 [facility], [address], [place], [address], 06:11:39 hepatiti s B surface Ab, qualitat danielle, serum 2020 [facility], [address], [place], [address], 06:11:36 hepatiti s C Ab, signal-t o-cutoff , serum or plasma 2020 [facility], [address] [facility] [address], [place], [address], 06:11:38 HbA1c (hemoglo bin A1c), blood 2020 [facility] In-Office Order, Internal Use Only DO Not Attach Compendium DO Not Attach Compendium, Do Not Delete/merge, [id number] 14:52:[address] referral 2019 020 aury Solomon MD, [address] [place], [address], 09:35:37 Procedures None recorded . Surgeries None recorded . Imaging None recorded . Medication Orders Humulin R Regular U-100 Insulin 100 unit/mL injectio n solution 2020 [facility] [address] [facility], [place], [address], 16:12:13 pioglita zone 45 mg tablet 2020 [facility] [address] [facility], [place], [address], 13:23:01 Levemir FlexTouc h U-100 Insulin 100 unit/mL (3 mL) subcutan eous pen 2020 [facility] [address] [facility], [place], [address], 16:13:09 aspirin 81 mg tablet,d elayed release 2020 [facility] [address] [facility], [place], [address], 13:22:58 metformi n 1,000 mg tablet 2020 [facility] [address] [facility], [place], [address], 13:23:09 atorvast atin 10 mg tablet 2020 [facility] [address] [facility], [place], [address], 13:22:54 metronid azole 500 mg tablet 2020 [facility] [address] [facility], [place], [address], 12:58:25 acyclovi r 800 mg tablet 2020 021 [facility] [address] [place], [address], 1 11:32:13 butalbit al-aceta minophen -caffein e 50 mg-325 mg-40 mg tablet 2020 021 [facility] [address] [place], [address], 1 11:38:09 Viagra 100 mg tablet 2020 021 [facility] [address] [place], [address], 1 11:32:09 butalbit al-aceta minophen -caffein e 50 mg-325 mg-40 mg tablet 2019 [facility] [address] [place], [address], 1 11:38:09 metformi n 1,000 mg tablet 2019 020 [facility] [address] [place], [address], 0 16:20:14 Alcohol Pads 2019 [facility] [address] [place], [address], 0 16:20:10 lactulos e 10 gram/15 mL (15 mL) oral solution 2019 [facility] [address] [place], [address], 1 11:39:44 Patient TargetsNo targets recorded. 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 Referring Physician: Joy Hi, Internal Medicine, Encounter Date: 08/13/2020 Results Created Date Observation Date Name Description Value Unit Range Abnormal Flag Note LastModifiedBy Organization Detail LastModifiedTime 03/04/2003/04/2023 COLOG UARD cologuard result Cancel led - Order d not applic able Not Available [facility] [address], [place], [address], 03/04/2023 12:36:23 02/12/20 22 02/11/2022 COLOG UARD cologuard result Cancel led - Order d not applic able Not Available [facility] [address], [place], [address], 02/11/2022 07:24:12 07/24/2007/29/2020 CT + NG + TV, DNA, urine /swab chlamydia by JAMES Negati ve negati ve Not Available [facility] ([facility]) [address] [place], [address], 07/29/2020 10:12:36 07/24/2007/29/2020 CT + NG + TV, DNA, urine /swab gonococcus by JAMES Negati ve negati ve Not Available [facility] ([facility]) [address] [place], [address], 07/29/2020 10:12:36 07/24/2007/29/2020 CT + NG + TV, DNA, urine /swab trich vag by JAMES Negati ve negati ve Not Available [facility] ([facility]) [address] [place], [address], 07/29/2020 10:12:36 07/24/20 20 07/25/2020 hsv (1+2) igg Ab, serum hsv 1 IgG, type spec <0.91 index 0.00-0 .90 Negat danielle <0.91 Equiv ocal 0.91 - 1.09 Posit danielle >1.09 Note: Negat danielle indic ates no antib odies detec adrian to HSV-1 . Equiv ocal may sugge st early infec tion. If clini sandrine appro priat e, retes t at later date. Posit danielle indic ates antib odies detec adrian to HSV-1 . Not Available [facility] ([facility]) [address] [facility], [place], [address], 07/29/2020 10:12:36 07/24/2007/25/2020 hsv (1+2) igg Ab, serum hsv 2 IgG, type spec <0.91 index 0.00-0 .90 Negat danielle <0.91 Equiv ocal 0.91 - 1.09 Posit danielle >1.09 Note: Negat danielle indic ates no antib odies detec adrian to HSV-2 . Equiv ocal may sugge st early infec tion. If clini sandrine appro priat e, retes t at later date. Posit danielle indic ates antib odies detec adrian to HSV-2 . Not Available [facility] ([facility]) [address] [facility], [place], [address], 07/29/2020 10:12:36 07/24/2007/25/2020 hepat itis B surfa ce Ab, quali tativ e, serum hep B surface Ab, qual Reacti ve Non React danielle: Incon siste nt with immun ity, less than 10 mIU/m L React danielle: Consi stent with immun ity, great er than 9.9 mIU/m L Not Available [facility] ([facility]) [address] [facility], [place], [address], 07/29/2020 10:12:37 07/24/20 07/25/2020 RPR (rapi d plasm a reagi n), serum RPR Non Reacti ve non reacti ve Not Available [facility] ([facility]) [address] [facility], [place], [address], 07/29/2020 10:12:38 07/24/20 20 07/25/2020 HIV 1+2 AB + HIV 1 p24 Ag, quali tativ e immun oassa y, serum HIV screen 4TH generation wrfx Non Reacti ve non reacti ve Not Available [facility] ([facility]) [address] [facility], [place], [address], 07/29/2020 10:12:38 07/24/2007/25/2020 hepat itis C Ab, signa l-to- cutof f, serum or plasm a hep C virus Ab <0.1 s/co_ ratio 0.0-0. 9 Negat danielle: < 0.8 Indet ermin ate: 0.8 - 0.9 Posit danielle: > 0.9 The CDC recom mends that a posit danielle HCV antib leigh resul t be follo wed up with a HCV Nucle ic Acid Ampli ficat ion test (5507 13). Not Available [facility] ([facility]) [address] [facility], [place], [address], 07/29/2020 10:12:39 07/24/2007/25/2020 HBsAg (hepa titis B surfa ce Ag), EIA, serum HBsAg screen Negati ve negati ve Not Available [facility] ([facility]) [address] [facility], [place], [address], 07/29/2020 10:12:40 12/12/1912/12/2020 CT + NG RNA, PCR, unspe cifie d speci men chlamydia trachomatis, JAMES Negati ve negati ve Not Available [facility] ([facility]) [address] [facility], [place], [address], 12/13/2020 06:11:35 12/12/19 21 12/12/2020 CT + NG RNA, PCR, unspe cifie d speci men neisseria gonorrhoeae, JAMES Negati ve negati ve Not Available [facility] ([facility]) [address] [facility], [place], [address], 12/13/2020 06:11:35 12/12/19 21 12/12/2020 hsv (1+2) igg Ab, serum hsv 1 IgG, type spec <0.91 index 0.00-0 .90 Negat danielle <0.91 Equiv ocal 0.91 - 1.09 Posit danielle >1.09 Note: Negat danielle indic ates no antib odies detec adrian to HSV-1 . Equiv ocal may sugge st early infec tion. If clini sandrine appro priat e, retes t at later date. Posit danielle indic ates antib odies detec adrian to HSV-1 . Not Available [facility] ([facility]) [address] [facility], [place], [address], 12/13/2020 06:11:36 12/12/19 21 12/12/2020 hsv (1+2) igg Ab, serum hsv 2 IgG, type spec <0.91 index 0.00-0 .90 Negat danielle <0.91 Equiv ocal 0.91 - 1.09 Posit danielle >1.09 Note: Negat danielle indic ates no antib odies detec adrian to HSV-2 . Equiv ocal may sugge st early infec tion. If clini sandrine appro priat e, retes t at later date. Posit danielle indic ates antib odies detec adrian to HSV-2 . Not Available [facility] ([facility]) [address] [facility], [place], [address], 12/13/2020 06:11:36 12/12/19 21 12/12/2020 hepat itis B surfa ce Ab, quali tativ e, serum hep B surface Ab, qual Reacti ve Non React danielle: Incon siste nt with immun ity, less than 10 mIU/m L React danielle: Consi stent with immun ity, great er than 9.9 mIU/m L Not Available [facility] ([facility]) [address] [facility], [place], [address], 12/13/2020 06:11:36 12/12/19 21 12/12/2020 RPR (rapi d plasm a reagi n), serum RPR Non Reacti ve non reacti ve Not Available [facility] ([facility]) [address] [facility], [place], [address], 12/13/2020 06:11:37 12/12/1912/12/2020 HIV 1+2 AB + HIV 1 p24 Ag, quali tativ e immun oassa y, serum HIV screen 4TH generation wrfx Non Reacti ve non reacti ve Not Available [facility] ([facility]) [address] [place], [address], 12/13/2020 06:11:38 12/12/19 21 12/12/2020 hepat itis C Ab, signa l-to- cutof f, serum or plasm a HCV Ab <0.1 s/co_ ratio 0.0-0. 9 Not Available [facility] ([facility]) [address] [facility], [place], [address], 12/13/2020 06:11:38 12/12/1912/12/2020 hepat itis C Ab, signa l-to- cutof f, serum or plasm a comment: Commen t Non react danielle HCV antib leigh scree n is consi stent with no HCV infec tion, unles s recen t infec tion is suspe cted or other evide nce exist s to indic ate HCV infec tion. Not Available [facility] ([facility]) [address] [facility], [place], [address], 12/13/2020 06:11:38 12/12/1912/12/2020 HBsAg (hepa titis B surfa ce Ag), EIA, serum HBsAg screen Negati ve negati ve Not Available [facility] ([facility]) [address] [facility], [place], [address], 12/13/2020 06:11:39 12/12/19 21 12/11/2020 HbA1c (hemo globi n A1c), blood HbA1c 7.7% Not Available In-Office Order Internal Use Only DO Not Attach Compendium DO Not Attach Compendium, Do Not Delete/merge, [id number] 12/11/2020 11:54:25 02/12/20 21 02/11/2021 HbA1c (hemo globi n A1c), blood HbA1c 13.2% Not Available In-Office Order Internal Use Only DO Not Attach Compendium DO Not Attach Compendium, Do Not Delete/merge, [id number] 02/11/2021 13:06:33 08/01/20 20 07/29/2020 US, scrot um No observ ation record ed. [facility] Not Available 2019 13:04:14 08/11/20 20 08/02/2020 CT, abdom en + pelvi s, w/o contr ast No observ ation record ed. [facility] Not Available 2019 16:27:24 08/21/20 20 08/15/2020 XR, chest No observ ation record ed. [facility] Not Available 2019 12:54:55 Result Notes None recorded. Problems Name Problem SNOMED Code Status Onset Date Resolution Date Notes Provider Name and Address Organization Details Recorded Time Diabetes mellitus 37134279 Active Joy Hi MD Attn: Dignain g,[address] [facility], [place], [address], [place] [facility] 6 13:50:43 Sexual exposure 0646311 Active Lulú Caldwell LPN null, [place] - [facility] 5 18:06:08 Microalbuminur ic diabetic nephropathy 848182506 Active Joy Hi MD Attn: Accountin g,[address], [place], [address], [place] [facility] 6 13:37:38 Tinea corporis 58452688 Active Joy Hi MD Attn: Accountin g,[address] [facility], [place], [address], [place] [facility] 5 16:02:25 Eruption 973876946 Active Joy Hi MD Attn: Accountpolly g,[address] [facility], [place], [address], [place] [facility] 5 16:53:19 Acute pharyngitis 522699031 Active Joy Hi MD Attn: Accountin g,[address] [facility], [place], [address], [place] [facility] 5 16:05:40 Chronic obstructive pulmonary disease 05670764 Active Joy Hi MD Attn: Accountin g,[address] [facility], [place], [address], [place] [facility] 6 13:50:43 Tobacco dependence syndrome 32162318 Active Joy iH MD Attn: Accountpolly g,[address] [facility], [place], [address], [place] [facility] 6 13:50:43 Skin lesion 16338572 Active Joy Hi MD Attn: Dignapolly g,[address] [facility], [place], [address], [place] [facility] 6 11:43:03 Herpesvirus infection 73467370 Active Joy Hi MD Attn: Moreno ange,[address] [place], [address], [place] [facility] 6 13:50:43 Chronic low back pain 214425188 Active Joy Hi MD Attn: Moreno g,[address] [facility], [place], [address], [place] [facility] 6 12:18:36 Problem Notes None recorded. Medical Equipment None Reported. Allergies No known drug allergies Medications Name Sig Start Date Stop Date Status Note LastModified by Organization Details LastModified Time sildenafil citrate 50 mg tabs 05/22 completed Not Available Not Available Not Available acyclovir 800 mg tabs 12/11 completed Not Available Not Available Not Available nystatin 651984 unit/gm crea 01/01 completed Not Available Not Available Not Available ciprofloxac in hydrochlori de 500 mgtabs 01/01 completed Not Available Not Available Not Available lisinopril 5 mg tabs One po Daily 07/10 completed Not Available Not Available Not Available metformin hydrochlori de 1000 mg tabs 01/01 completed Not Available Not Available Not Available cyclobenzap rine 10 mg tablet 03/20 completed Not Available Not Available Not Available amoxicillin 500 mg capsule 12/11 completed Not Available Not Available Not Available Miralax 17 gram/dose oral powder Take 17 g every day by oral route as directed for 30 days. 07/10 completed Not Available Not Available Not Available metformin 500 mg tablet 08/02 completed Not Available Not Available Not Available gabapentin 600 mg tablet Take 1 tablet 3 times a day by oral route for 30 days. 08/02 completed Not Available Not Available Not Available doxycycline hyclate 100 mg capsule Take 1 capsule twice a day by oral route after meals for 10 days. 12/11 completed Not Available Not Available Not Available nicotine 14 mg/24 hr daily transdermal patch Apply 1 patch every day by transderm al route as directed for 30 days. 01/10 completed Not Available Not Available Not Available clindamycin HCl 300 mg capsule 12/11 completed Not Available Not Available Not Available sildenafil 50 mg tablet Take 1 tablet every day by oral route as needed for 10 days. 02/11 completed Not Available Not Available Not Available atorvastati n 10 mg tablet TAKE 1 TABLET BY MOUTH ONCE DAILY AT DINNER FOR 30 DAYS active Not Available Not Available No t Available ibuprofen 800 mg tablet 12/11 completed Not Available Not Available Not Available fluconazole 150 mg tablet TAKe 1 TABLET BY MOUTH DAILY 08/02 completed Not Available Not Available Not Available hydrocodone 5 mg-acetamin ophen 325 mg tablet TAKE 1 TABLET BY MOUTH EVERY 6 HOURS NEEDED FOR PAIN 12/11 completed Not Available Not Available Not Available prednisone 20 mg tablet 08/02 completed Not Available Not Available Not Available Alcohol Pads Apply 1 pad every day by topical route as needed for 30 days. 2019 active Not Available Not Available Not Avai lable Zithromax Z-Alfonzo 250 mg tablet TAKE 2 TABLETS (500 MG) BY ORAL ROUTE ONCE DAILY FOR 1 DAY THEN 1 TABLET (250 MG) BY ORAL ROUTE ONCE DAILY FOR 4 DAYS 08/02 completed Not Available Not Available Not Available Tylenol Arthritis Pain 650 mg tablet,exte nded release Take 2 tablets every 8 hours by oral route as directed for 10 days. 12/11 completed Not Available Not Available Not Available pioglitazon e 45 mg tablet TAKE 1 TABLET BY MOUTH ONCE DAILY WITH MEALS FOR 30 DAYS active Not Available Not Available No t Available metronidazo le 500 mg tablet TAKE 4 TABLETS BY MOUTH ONCE DAILY DIRECTED FOR 1 DAY active Not Available Not Available No t Available acyclovir 400 mg tablet Take 1 tablet(s) twice a day by oral route as directed for prophylax is 12/11 completed Not Available Not Available Not Available valacyclovi r 500 mg tablet 08/02 completed Not Available Not Available Not Available sulfamethox azole 800 mg-trimetho prim 160 mg tablet Take 1 tablet every 12 hours by oral route for 7 days. 08/02 completed Not Available Not Available Not Available hydrocodone 10 mg-acetamin ophen 325 mg tablet TAKE 1 TABLET BY MOUTH EVERY 6 HOURS NEEDED FOR PAIN 12/11 completed Not Available Not Available Not Available aspirin 81 mg tablet,jil yed release TAKE 1 TABLET BY MOUTH ONCE DAILY AFTER A MEAL FOR 30 DAYS active Not Available Not Available No t Available butalbital- acetaminoph en-caffeine 50 mg-325 mg-40 mg tablet Take 1 tablet as needed by oral route as directed for 30 days. 12/11 completed Not Available Not Available Not Available acyclovir 800 mg tablet TAKE 1 TABLET BY MOUTH ONCE DAILY DIRECTED FOR 30 DAYS active Not Available Not Available No t Available Fleet Enema 19 gram-7 gram/118 mL Insert 118 mL twice a day by rectal route as needed for 5 days. 12/11 completed Not Available Not Available Not Available famotidine 20 mg tablet 03/20 completed Not Available Not Available Not Available clindamycin 1 % topical gel APPLY A THIN LAYER TOPICALLY TO THE AFFECTED AREA(S) TWICE DAILY 12/11 completed Not Available Not Available Not Available amoxicillin 250 mg/5 mL oral suspension 11/12 completed Not Available Not Available Not Available OneTouch Ultra Test strips 05/22 completed Not Available Not Available Not Available Humulin R Regular U-100 Insulin 100 unit/mL injection solution Take 20 units as needed by injection route as directed for 1 day. 03/04 completed Not Available Not Available Not Available hyoscyamine sulfate 0.125 mg tablet 07/10 completed Not Available Not Available Not Available metformin 1,000 mg tablet TAKE 1 TABLET BY MOUTH TWICE DAILY WITH MEALS active Not Available Not Available No t Available Cipro 500 mg tablet Take 1 tablet every 12 hours by oral route after meals for 7 days. 05/22 completed Not Available Not Available Not Available nystatin 100,000 unit/gram topical cream APPLY TO THE AFFECTED AREA(S) BY TOPICAL ROUTE 2 TIMES PER DAY 05/22 completed Not Available Not Available Not Available polymyxin B sulfate 10,000 unit-trimet hoprim 1 mg/mL eye drops INSTILL 1 DROP INTO RIGHT EYE EVERY 3 HOURS WHILE AWAKE FOR 7 DAYS DIRECTED active Not Available Not Available No t Available nicotine 21 mg/24 hr daily transdermal patch Apply 1 patch every day by transderm al route as directed for 30 days. 01/10 completed Not Available Not Available Not Available gabapentin 300 mg capsule 08/02 completed Not Available Not Available Not Available aspirin 81 mg chewable tablet Chew 1 tablet every day by oral route after meals for 30 days. 02/09 completed Not Available Not Available Not Available lisinopril 5 mg tablet TAKE 1 TABLET BY MOUTH ONCE DAILY DIRECTED FOR 30 DAYS active Not Available Not Available No t Available mupirocin 2 % topical ointment 02/11 completed Not Available Not Available Not Available Viagra 100 mg tablet Take 1 tablet every day by oral route as directed for 30 days. 2020 active Not Available Not Available Not Avai lable ibuprofen 600 mg tablet 03/20 completed Not Available Not Available Not Available ondansetron 4 mg disintegrat ing tablet 03/20 completed Not Available Not Available Not Available fluticasone propionate 50 mcg/actuati on nasal spray,suspe nsion 02/11 completed Not Available Not Available Not Available clotrimazol e 1 % topical cream 08/02 completed Not Available Not Available Not Available doxycycline hyclate 100 mg tablet Take 1 tablet twice a day by oral route after meals for 30 days. active Not Available Not Available No t Available naproxen 500 mg tablet 02/09 completed Not Available Not Available Not Available metoclopram jose 10 mg tablet TAKE 1 TABLET BY MOUTH TWICE DAILY DIRECTED FOR 10 DAYS active Not Available Not Available No t Available amoxicillin 875 mg-potassiu m clavulanate 125 mg tablet 02/24 completed Not Available Not Available Not Available amoxicillin 500 mg-potassiu m clavulanate 125 mg tablet Take 1 tablet every 12 hours by oral route after meals for 7 days. 01/01 completed Not Available Not Available Not Available nicotine 7 mg/24 hr daily transdermal patch Apply 1 patch every day by transderm al route as directed for 30 days. 01/10 completed Not Available Not Available Not Available Constulose 10 gram/15 mL oral solution 02/11 completed Not Available Not Available Not Available chlorhexidi ne gluconate 0.12 % mouthwash SWISH AND SPIT 15ML BY MOUTH TWICE DAILY FOR TWO WEEKS 12/11 completed Not Available Not Available Not Available Januvia 50 mg tablet 08/02 completed Not Available Not Available Not Available Accu-Chek FastClix Lancing Device 05/22 completed Not Available Not Available Not Available lactulose 10 gram/15 mL (15 mL) oral solution Take 15 mL every day by oral route as needed for 10 days. 12/11 completed Not Available Not Available Not Available OneTouch Delica Lancets 30 gauge 05/22 completed Not Available Not Available Not Available Levemir FlexTouch U-100 Insulin 100 unit/mL (3 mL) subcutaneou s pen INJECT 10 UNITS SUBCUTANE OUSLY ONCE DAILY DIRECTED 2020 active Not Available Not Available Not Avai lable Vitals Date Recorded Body height Body mass index (BMI) Body weight Body temperature Oxygen saturation Heart rate Systolic And Diastolic Provider Name and Address Organization Details Last Updated DateTime 1 170.82 cm 30.8 kg/m2 16811.7 3 g 97.8 [degF] 98 % 81 /min 124/96 mm[Hg] Rios Kelly MA [facility] 1 11:45:02 Date Recorded Body height Body mass index (BMI) Body weight Body temperature Oxygen saturation Heart rate Systolic And Diastolic Provider Name and Address Organization Details Last Updated DateTime 1 170.82 cm 28.9 kg/m2 85725.4 6 g 98.1 [degF] 98 % 76 /min 120/90 mm[Hg] Rios Kelly MA [facility] 1 12:43:06 Date Recorded Body height Provider Name an d Address Organization Details Last Updated DateTime 08/13/2020 170.82 cm Darlene Hernandez MA [facility] 0 15:27:40 Date Recorded Body height Body mass index (BMI) Body weight Body temperature Oxygen saturation Heart rate Systolic And Diastolic Provider Name and Address Organization Details Last Updated DateTime 0 170.82 cm 29.1 kg/m2 23374.2 1 g 97.8 [degF] 95 % 90 /min 120/88 mm[Hg] Rios Kelly MA [facility] 0 15:54:27 Social History Question Answer Notes LastModified by Organizat ion Details LastModified Time Tobacco Smoking Status Former Smoker Krupa Moss MA [facility], [facility] 01/11/2020 15:49:58 Do You Have An Advance Directive? No Information not available 01/11/2020 Are You Blind Or Do You Have Difficulty Seeing? No Information not available 10/08/2014 What Is Your Level Of Caffeine Consumption? Occasional Soda Coke Zero Information not available 01/11/2020 How Much Tobacco Do You Chew? None Information not available 10/08/2014 In The 14 Days Before Symptom Onset, Have You Had Close Contact With A Laboratory-confir med COVID-19 While That Case Was Ill? No Information not available 01/11/2020 In The 14 Days Before Symptom Onset, Have You Had Close Contact With A Person Who Is Under Investigation For COVID-19 While That Person Was Ill? No Information not available 01/11/2020 Have You Been To An Area Known To Be High Risk For COVID-19? No Information not available 01/11/2020 Are You Deaf Or Do You Have Serious Difficulty Hearing? No Information not available 10/08/2014 What Type Of Diet Are You Following? REGULAR Information not available 10/08/2014 Which Illicit Or Recreational Drugs Have You Used? Denies Information not available 01/11/2020 Education 12 Information no t available 10/08/2014 What Is The Highest Grade Or Level Of School You Have Completed Or The Highest Degree You Have Received? [id number] Information not available 01/11/2020 How Many Days Of Moderate To Strenuous Exercise, Like A Brisk Walk, Did You Do In The Last 7 Days? 2 Information not available 01/11/2020 On Those Days That You Engage In Moderate To Strenuous Exercise, How Many Minutes, On Average, Do You Exercise? 15 Information not available 01/11/2020 Are There Any Guns Present In Your Home? No Information not available 10/08/2014 Hard Of Hearing Or Deaf In One Or Both Ears? No Information not available 10/08/2014 Legally Blind In One Or Both Eyes? No Information no t available 10/08/2014 Marital Status Single Informatio n not available 10/08/2014 What Was The Date Of Your Most Recent Tobacco Screening? 02/11/2021 Information not available 02/11/2021 Performs Monthly Self-breast Exam? No Information no t available 10/08/2014 Seat Belts Used Routinely Yes Information not available 10/08/2014 Smoke Alarm In Home Yes Information not available 10/08/2014 How Much Tobacco Do You Smoke? 0.5 PPD Information not available 02/11/2021 General Stress Level Low Information not available 01/11/2020 Do You Use Sunscreen Routinely? No Information not available 10/08/2014 On What Date Was Tobacco Cessation Counseling Provided? 02/11/2021 Information not available 02/11/2021 How Many Years Have You Smoked Tobacco? 7 Information not available 02/11/2021 Do You Have Difficulty Walking Or Climbing Stairs? No Information not available 10/08/2014 Sex: Unknown Functional Status Question Answer Note LastModified by Organizat ion Details LastModified Time What is your level of alcohol consumption? None Information not available 10/08/2014 Do you or have you ever used smokeless tobacco? Never used smokeless tobacco Information not available 01/11/2020 Do you have difficulty doing errands alone? 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 No Information not available 10/08/2014 Do you or have you ever used e-cigarettes or vape? Never used electronic cigarettes [email or web address] Information not available 01/02/2020 What is your exercise level? Occasional Information not available 10/08/2014 Mental Status Question Answer Note LastModified by Organization D etails LastModified Time Do you have difficulty concentrating, remembering or making decisions? No Information no t available 10/08/2014 Family History Nothing Reported. Medical History Condition Response Coronary Artery Disease N Other N High Blood Pressure Y Atrial Fibrillation N Thyroid Problems N Kidney or Bladder Problems N GI Problems Y Depression N COPD N Blood Clots N Skin Problems N Anemia N Heart Attack (PA) N Diabetes Y Anxiety Disorder N Muscle, Joint, or Bone Problems N Seizures/Epilepsy N Acid Reflux (GERD) N Cancer N Stroke N Asthma N Allergies N High Cholesterol N Hepatitis N Liver Disease N Headaches N Osteoporosis N Heart Failure N Past Encounters Encounter ID Performer Location Encounter Start Date Encounter Closed Date Diagnosis/Indication Diagnosis SNOMED-CT Code Diagnosis ICD10 Code Diagnosis IMO Codes Diagnosis Note [id number] MD Nydia Calderón (Adult Med) [address] [place] [address] [id number] 10/08/2014 16:09:13 10/08/2014 17:47:44 Diabetes mellitus 18214328 Sexual exposure [id number] [id number] Joy Hi MD [facility] (Adult Med) [address] [place] [address] [id number] 11/07/2014 15:25:13 11/07/2014 16:07:40 Diabetes mellitus 67022324 Microalbum inuric diabetic nephropathy 582271404 Tinea corporis 31462206 [id number] Joy Hi MD [facility] (Adult Med) [address] [place] [address] [id number] 0 12/31/2014 15:48:54 12/31/2014 16:53:35 Eruption [id number] Diabetes mellitus 24600719 Microalbum inuric diabetic nephropathy 998624648 Sexual exposure 7297775 [id number] Joy Hi MD [facility] (Adult Med) [address] [place] [address] [id number] 0 03/25/2015 15:02:44 03/25/2015 16:12:07 Diabetes mellitus 98241812 Microalbum inuric diabetic nephropathy 871456300 Acute pharyngitis 503955554 Chronic ob structive pulmonary disease 38804628 Tobacco de pendence syndrome 34517782 [id number] Joy Hi MD [facility] (Adult Med) [address] [place] [address] [id number] 06/25/2015 14:39:16 06/25/2015 15:46:19 Diabetes mellitus 09728973 E13.21 Chronic ob structive pulmonary disease 79820771 J44.9 Tobacco de pendence syndrome 45952594 F17.290 Microalbum inuric diabetic nephropathy 698298737 E11.21 Sexual exposure 8684729 F66 [id number] MD Nydia Calderón (Adult Med) [address] [place] [address] [id number] 11/06/2015 10:21:17 11/06/2015 11:44:15 Diabetes mellitus 83256408 E13.21 Chronic ob structive pulmonary disease 48374614 J44.9 Tobacco de pendence syndrome 05661606 F17.290 Skin lesion 94752752 L98 .9 [id number] MD Nydia Calderón (Adult Med) [address] [place] [address] [id number] 0 12/01/2015 10:25:44 12/02/2015 15:53:32 Diabetes mellitus 01211246 E13.21 Chronic ob structive pulmonary disease 10957578 J44.9 Tobacco de pendence syndrome 98989038 F17.290 [id number] MD Nydia Calderón (Adult Med) [address] [place] [address] [id number] 0 03/05/2016 12:24:23 03/05/2016 13:54:45 Diabetes mellitus 55990142 E13.21 Chronic ob structive pulmonary disease 49394702 J44.9 Tobacco de pendence syndrome 48894168 F17.290 Herpesvirus infection 23 149472 B00.9 Chronic low back pain 27 0081298 M54.5 [id number] Joy Hi MD [facility] (Adult Med) [address] [place] [address] [id number] 0 07/02/2016 10:23:26 07/02/2016 12:52:46 Type 2 diabetes mellitus 37959158 E11.21 Chronic low back pain 27 9488413 M54.5 Herpes simplex 84290894 B00.9 Secondary hyperlipidemia 139775945 E78.5 [id number] [facility] [address] [place] [address] [id number] 11/12/2016 11:46:55 11/12/2016 12:49:19 Diabetes mellitus 33708364 E13.21 Chronic ob structive pulmonary disease 32634616 J44.9 Microalbum inuric diabetic nephropathy 344469109 E11.21 Ex-smoker 7711409 Z87.89 1 Secondary hyperlipidemia 653966100 E78.5 Type 2 sandie betes mellitus 51233976 E11.21 Herpes simplex 26318602 B00.9 Pain in testicle 9784644 9 N50.960 [id number] [facility] [address] [place] [address] [id number] 0 08/02/2017 15:43:19 08/02/2017 17:54:00 Diabetes mellitus 28229731 E11.21 Diabetic diet, on metformin which he has enough refills, will refer to eye doctor for annual check of his retina. will refil the strip and lancet. Las HgA1c was 5.9% 11-06-2015 , he has poor compliance for the timely blood test, last office visit was 11-12-2016 . Type 2 DM. Microalbum inuric diabetic nephropathy 341948746 E11.21 His microalbum in in the urine has improved. Chronic ob structive pulmonary disease 71697648 J44.9 Ex-smoker, he quit about one month ago for the cigarettes smoking. Administra tion of influenza vaccine 57426526 Z23 He refuses. Thoracic a ortic aneurysm without rupture 21982269 I71.2 Abnormal chest x ray, possible thoracic aneurysm. [id number] MD Nydia Calderón (Adult Med) [address] [place] [address] [id number] 09/30/2017 15:44:07 09/30/2017 16:47:53 Acute pharyngitis 778946439 J02.9 [id number] [facility] [address] [place] [address] [id number] 0 01/05/2018 10:46:29 01/05/2018 11:53:02 Diabetes mellitus 99080802 E11.21 Diabetic diet, on metformin which he has enough refills, will refer to eye doctor for annual check of his retina. will refil the strip and lancet. Las HgA1c was 5.9% 11-06-2015 , he has poor compliance for the timely blood test, last office visit was 11-12-2016 . Type 2 DM. Non-alcoho lic fatty liver 229056525 K76.0 Exercise, avoid alcohol, avoid greasy fatty diet, lose so. Essential hypertension 16961932 I10 Low salt diet. Herpes simplex 66350150 B00.9 Safe sex and partner shall be checked ia. [id number] MD Nydia Calderón (Adult Med) [address] [place] [address] [id number] 0 02/09/2019 15:27:44 02/09/2019 17:19:29 Diabetes mellitus 38114356 E11.21 Diabetic diet, on metformin which he has enough refills, will refer to eye doctor for annual check of his retina. will refil the strip and lancet. Las HgA1c was 5.9% 11-06-2015 , he has poor compliance for the timely blood test, last office visit was 11-12-2016 . Type 2 DM. He has enough metformin. Tinea capitis 0030254 B3 5.0 Discussed with patient. Herpes simplex 67017676 B00.9 Safe sex and partner shall be checked ut. Essential hypertension 05121726 I10 Low salt diet. Orchitis a nd epididymitis 128765292 N45.3 Discussed with patient. If not better , may consider US and /or urology referral. Impotence 993929108 N52. 9 Discussed with patient. [id number] Joy Hi MD [facility] (Adult Med) [address] [place] [address] [id number] 05/22/2019 15:14:47 05/23/2019 12:55:08 Acute pharyngitis 829631262 J02.9 Discussed with patient , he agreed with the trail of antibiotic s. Pain in testicle 0747488 9 N50.819 Discussed with patient. Will be scheduled at [facility]. He agreed, Nicotine dependence 5629 4008 F17.200 He is willing to quit smoking. Diabetes mellitus 921186 09 E11.21 Diabetic diet, on metformin which he has enough refills, will refer to eye doctor for annual check of his retina. will refil the strip and lancet. Las HgA1c was 5.9% 11-06-2015 , he has poor compliance for the timely blood test, last office visit was 11-12-2016 . Type 2 DM. He has enough metformin. [id number] Santos Rivera MD [facility] (Adult Med) [address] [place] [address] [id number] 01/02/2020 15:07:31 01/03/2020 11:14:09 Diabetes mellitus 02558338 E11.9 Recurrent genital Herpes simplex type 2 infection 722084149 A60.00 Impotence 942269721 N52. 9 Constipation 58849432 K5 9.00 Low back pain 661073977 M54.5 Abdominal pain 85282758 R10.9 [id number] Joy Hi MD [facility] (Adult Med) [address] [place] [address] [id number] 01/11/2020 15:46:29 01/14/2020 12:21:32 Sexually transmitted infectious disease 3092101 A64 Discussed with patient, he wants to be tested next week, tuesday01-15-2020 Type 2 sandie ben mellitus 99673987 E11.65 Microalbum inuric diabetic nephropathy 200248235 E11.21 His microalbum in in the urine has improved. Diabetes mellitus 317279 E11.21 Diabetic diet, on metformin which he has enough refills, will refer to eye doctor for annual check of his retina. will refil the strip and lancet. Las HgA1c was 5.9% 11-06-2015 , he has poor compliance for the timely blood test, last office visit was 11-12-2016 . Type 2 DM. He has enough metformin. [id number] MD Nydia Calderón (Adult Med) [address] [place] [address] [id number] 0 03/20/2020 14:53:29 03/26/2020 11:45:27 Herpesvirus infection 80469904 B00.9 Will refill acyclovir. refills been ordered. Skin lesion 30363806 L98 .9 On both sides of face. One tin y skin lesion, well circum bown color on the right upper thigh, will just watch, if gets bigger, then will send to removal. He agreed. But he wants it to be removed. Diabetes mellitus 631689 E11.21 Diabetic diet, on metformin which he has enough refills, will refer to eye doctor for annual check of his retina. will refil the strip and lancet. Las HgA1c was 5.9% 11-06-2015 , he has poor compliance for the timely blood test, last office visit was 11-12-2016 . Type 2 DM. He has enough metformin. Essential hypertension 24774575 I10 Low salt diet. Venereal d isease screening 470319500 Z11.3 He wants to be screened for STD. [id number] MD Nydia Calderón (Adult Med) [address] [place] [address] [id number] 0 07/10/2020 16:34:21 07/11/2020 10:40:18 Cystic acne 37315139 L70.0 Will try antibiotic s. Chronic constipation 236 492212 K59.09 Will try medication s as below. Painless r ectal bleeding 347201809 K62.5 Will refer to GI. Swelling of scrotum 2716 25235 N50.89 Will do STD screening. Venereal d isease screening 284901809 Z11.3 He wants to be screened for STD. [id number] MD Nydia Calderón (Adult Med) [address] [place] [address] [id number] 0 08/13/2020 08:26:44 08/14/2020 13:11:29 Painful rectal bleeding 517831719 K62.5 Discussed with patient, agreed for the GI referral. Chronic constipation 236 436262 K59.09 Will try medication s as below. [id number] MD Nydia Calderón (Adult Med) [address] [place] [address] [id number] 0 08/22/2020 15:23:05 08/25/2020 14:43:10 Type 2 diabetes mellitus 91407655 E11.65 Diabetic diet, exercise, keep the weight down. refill metformin Diabetes mellitus 958074 09 E11.21 Diabetic diet, on metformin which he has enough refills, will refer to eye doctor for annual check of his retina. will refil the strip and lancet. Las HgA1c was 5.9% 11-06-2015 , he has poor compliance for the timely blood test, last office visit was 11-12-2016 . Type 2 DM. He has enough metformin. Painful re ctal bleeding 091018198 K62.5 Discussed with patient, agreed for the GI referral.R eferral has been ordered. He is going to call GI with phone number provided. Chronic he adache disorder 167947430 G44.89 Discussed with patient, he agreed for the trials of medication for the mean time. Suspected COVID-19 34584 4004 Z03.89 Negative test. [id number] MD Nydia Calderón (Adult Med) [address] [place] [address] [id number] 0 10/31/2020 08:27:31 11/03/2020 20:49:40 Migraine 45268841 G43.909 Complainin g of erectile dysfunction 721924047 N52.9 Herpes simplex 80871081 B00.9 Safe sex and partner shall be checked ut. Chronic he adache disorder 973840453 G44.89 Discussed with patient, he agreed for the trials of medication for the mean time. [id number] [facility] [address] [place] [address] [id number] 0 12/11/2020 11:25:02 12/12/2020 11:09:31 Diabetes mellitus 25019770 E11.21 Diabetic diet, on metformin which he has enough refills, will refer to eye doctor for annual check of his retina. will refil the strip and lancet. Last HgA1c was 5.9% 11-06-2015 , he has poor compliance for the timely blood test, last office visit was 11-12-2016 . Type 2 DM. He has enough metformin. Venereal d isease screening 042347303 Z11.3 He wants to be screened for STD. He went to Urgent care few day sago , they pre scribed metronidaz ol for tricomonia sis for and order was sent [facility] of [facility] [place], Sexual partner shall be checked and treated accordingl y , safe sex is advised. [id number] Joy Hi MD [facility] (Adult Med) [address] [place] [address] [id number] 02/11/2021 12:16:20 02/12/2021 10:03:11 Type 2 diabetes mellitus 19579228 E11.65 Diabetic diet, exercise, keep the weight down. refill metformin, BMI is 28.9 % Family his tory of cancer of colon 760842272 Z80.0 His grand father had colon cancer, Screening for malignant neoplasm of colon 356877433 Z12.11 Will screen stool as initial step, Dyslipidem ia due to type 2 diabetes mellitus 0153002959 02 E78.5 Low saturated and low animal fat diet. Health Concerns Section Related Observation LastModified by Organization Detai ls LastModified Time None Recorded Concern Status LastModified by Organization Details LastModified Time None Recorded Advance Directives Directive N: Payers Insurance Date Sequence Insurance Name Policy Number Policy Duran Covered Member ID Duran Member ID Guarantor Name 02/11/2021 1 [facility] [id number] Norm Walls [id number] Norm Walls 02/11/2021 1 [facility] [id number] Norm Walls [id number] Norm Walls 09/30/2017 SLIDING FEE SCHEDULE - DISCOUNT Norm Walls 02/11/2021 1 [facility] [id number] Norm Walls [id number] Norm Walls 02/11/2021 1 [facility] (O) [id number] Norm Walls [id number] Norm Walls Notes Date Note Type Note Provider Name and Address Organization Details Recorded Time 08/13/2020 text/html ROS as noted in the HPI This is phone visit, due to edward virus pandemic, he understood and agreed, C/C constipated, abdomenal bloating, with rectal bleeding , still constipated, no longer on narcotic pain medication, will refer to GI and renew lactulose. NKDA. Joy Hi MD Attn: [address] [place], [address], [facility] [place] 08/13/2020 16:38:39 08/22/2020 text/html ROS as noted in the HPI Office visit, NKDA. C/C 1. Rectal bleeding with left lower abdominal cramping, has been referred to GI, phone number provided to contact GI specialist. 2. Head ache , off and on, . 3 . Type 2 DM, wants oral pill refilled , also glucometer with alcohol, lancet, strip, 4. Negative covid -19 test, copy og result provided to ma in this office today. Joy Hi MD Attn: [address] [place], [address], [facility] [place] 08/22/2020 17:29:35 10/31/2020 text/html ROS as noted in the HPI This is phone visit, due to edward virus pandemic, he understood and agreed, NKDA, history of migraine, erectile dysfunction aand herpes infections, wants refill medications. Joy Hi MD Attn: [address] [place], [address], [facility] 10/31/2020 11:32:13 02/11/2021 text/html ROS as noted in the HPI Office visit, type 2 DM, on metformin, few months ago his HgA1c was around 7.7 %, but he said that his blood sugar nerve below 250 mg%, losing weight , raising his concen about occult cancer, his grandfather had colon cancer, NKDA. Joy Hi MD Attn: [address] [facility], [place], [address], [facility] 02/11/2021 13:22:52
[2025-08-31 08:55] VITALS: BP 132/90; PULSE 98; RESP 16; TEMP 36.4; O2SAT 99
--- OUTSIDE RECORDS SUMMARY | 2025-08-31 09:22 | XMS_ITS | Patient Health Record ---
Author Organization [facility] Address [address] [address] Care Team Providers Care Delivery Manager Name Role Phone Sb Faustin M.D. Unavailable [phone] ALLERGIES No Known Allergies REASON FOR REFERRAL No Information MEDICATIONS Medication SIG (Take, Route, Frequency, Duration) Notes Start Date End Date Status metFORMIN HCl Active Lisinopril Active SOCIAL HISTORY Tobacco Use: Social History Observation Description Date Details (start date - stop date) Never Smoker NA - NA Sex Assigned At : Social History Observation Description Sex Assigned At Unknown Tobacco Use/Smoking Question Answer Notes Are you a nonsmoker Alcohol Screen (Audit-C) Question Answer Notes Did you have a drink containing alcohol in the p ast year? No Points 0 Interpretation Negative PROBLEMS Problem Type ICD Code Onset Dates Problem Status W/U Status Risk SNOMED Code Notes Problem Hypertension, unspecified type (I10) Active confirmed Essential hypertension (74208124) PLAN OF TREATMENT No Information Insurance Providers Payer Name Payer Address Payer Phone Subscriber Number Group Number Insured Name Patient Relationship to Insured Coverage Start Date Coverage End Date [place] Complete Care Plan [facility] [address] [place] [address] [id number] Norm Walls Self - patient is the insured 3 MEDICAL (GENERAL) HISTORY Medical History History ICD Code High Blood Pressure Surgical History Surgery Date(Month/Year)
--- OUTSIDE RECORDS SUMMARY | 2025-08-31 09:22 | XMS_ITS | Clinical Summary ---
Author Organization [facility] Address [facility] [place] [address] Care Team Providers Care General Store Manager Name Role Phone Unavailable Primary Care Provider [...]
[2025-08-31 09:53] LABS: Hematocrit 49.9 % (42.0-52.0); Hemoglobin 16.1 g/dL (14.0-18.0); Immature Granulocyte Percent A 0.2 % (0-0.5); Lymphocytes Absolute Auto 2.33 K/mm3 (0.9-3.2); Mean Corpuscular HGB Conc 32.3 g/dl (32-36); Mean Corpuscular Hemoglobin 26.3 pg (26-34); Mean Corpuscular Volume 81.5 fl (80-100); Nucleated Red Blood Cells Absolute Auto 0.000 K/mm3 (0.0-0.012); Nucleated Red Blood Cells Perc 0.0 % (0.0-0.2); Platelet Count Result 314 k/mm3 (150-375); Red Blood Count 6.12 M/mm3 (4.6-6.20); White Blood Count 5.2 K/mm3 (4.5-10.0)
[2025-08-31 09:57] LABS: Add Urine Microscopic? YES; Appearance Urine Clear (Clear); Glucose Urine UA 3+ mg/dL (Negative); Leukocyte Esterase Ur Negative LEU/UL (Negative); Nitrate Urine Negative (Negative); Non Pathogenic Casts 0-2; Specific Grav Ur > 1.045 (1.001-1.035)
--- NOTE | 2025-08-31 10:05 | ED_ITS ---
HPI - General Adult General Chief complaint: Unspecified Stated complaint: bruising to left great toe for a week, tingling Time Seen by Provider: 08/31/25 08:55 History of Present Illness HPI narrative: Patient is a 39-year-old male who presents ER with reports of numbness to his hands feet and groin. Progressive over last week. No fevers or chills or sweats. No injury to the back/neck/head. Patient is known to be diabetic. He does not take his insulin. He has been urinating more frequently. He is able to have bowel movement and urinate on command. No fevers or chills or sweats Related Data Allergies Allergy/AdvReac Type Severity Reaction Status Date / Time No Known Allergies Allergy Verified 08/31/25 09:53 Review of Systems 2 Review of Systems: All systems reviewed & are unremarkable except as noted in HPI and below Constitutional: Constitutional: Reports no additional constitutional complaints ENT: Reports system reviewed and no additional complaints, except as documented Musculoskeletal: Musculoskeletal: Reports no additional musculoskeletal complaints Neurologic: Reports system reviewed and no additional complaints, except as documented [facility] Past Medical History Medical History Diabetes mellitus Social History Social History Smoking status: Never smoker Substance use: never Gender identity (if verbalized by the patient): Male Exam 2 Narrative: GENERAL: Well-appearing, well-nourished, and in no acute distress. HEAD: Normocephalic, atraumatic. ENT: Mucous membranes moist. CHEST: Clear to auscultation. No respiratory distress. HEART: Regular rate and rhythm. Normal peripheral pulses. Back: No reproducible midline tenderness the T/L-spine. Mild low lumbar discomfort laterally L3-L4 level. Negative straight leg raise bilaterally. ABDOMEN: Soft, nontender, nondistended. EXTREMITIES: Normal range of motion. No edema. SKIN: Warm, dry, no rash. NEURO:Alert and oriented x3. Gross sensation intact in lower extremities. PSYCH: Normal mood and affect. Course Course Emergency Course: Patient with elevated blood sugar due to medical glycemic control. Discussed importance of compliance medication as long-term side effects include neuropathy which is what I think he has today but also loss of limb, rectal dysfunction, heart disease. We will refill his insulin glargine and he needs to follow up with his PCP. Vital Signs Vital signs: Vital Signs Temperature 97.6 F 08/31/25 08:55 Pulse Rate 98 08/31/25 08:55 Respiratory Rate 16 08/31/25 08:55 Blood Pressure 132/90 08/31/25 08:55 Pulse Oximetry 99 08/31/25 08:55 Temperature 97.6 F 08/31/25 08:55 Pulse Rate 86 08/31/25 12:32 Respiratory Rate 17 08/31/25 12:32 Blood Pressure 133/99 H 08/31/25 12:32 Pulse Oximetry 98 08/31/25 12:32 MDM Differential Diagnosis Differential Diagnosis: Cauda equina, lumbar radiculopathy, diabetic neuropathy, spinal epidural abscess Lab Data [facility] Lab Attestation statement: I personally reviewed the patient's lab results. 08/31/25 09:45 08/31/25 09:45 Labs: Lab Results 08/31/25 08/31/25 08/31/25 Range/Units 09:45 09:48 10:02 WBC 5.2 (4.5-10.0) K/mm3 RBC 6.12 (4.6-6.20) M/mm3 Hgb 16.1 (14.0-18.0) g/dL Hct 49.9 (42.0-52.0) % MCV 81.5 (80-100) fl MCH 26.3 (26-34) pg MCHC 32.3 (32-36) g/dl RDW 13.0 (11.5-14.5) % Plt Count 314 (150-375) k/mm3 MPV 10.4 (7.4-10.4) fl Immature Gran % (Auto) 0.2 (0-0.5) % Neut % (Auto) 45.5 (45.5-73.1) % Lymph % (Auto) 44.9 H (18.3-44.2) % Burnett % (Auto) 6.7 (2.6-8.5) % Eos % (Auto) 2.3 (0-4.4) % Baso % (Auto) 0.4 (0.2-1.2) % Lymph # (Auto) 2.33 (0.9-3.2) K/mm3 Burnett # (Auto) 0.4 (0.1-0.6) K/mm3 Eos # (Auto) 0.1 (0-0.3) K/mm3 Baso # (Auto) 0.0 (0.0-0.1) K/mm3 Abs Immat Gran (auto) 0.01 (0.00-0.031) K/mm3 Absolute Neuts (auto) 2.4 (1.3-6.7) K/mm3 Absolute Nucleated RBC 0.000 (0.0-0.012) K/mm3 Nucleated RBC % 0.0 (0.0-0.2) % Sodium 135 L (137-145) mmol/L Potassium 4.7 (3.4-5.0) mmol/L Chloride 97 L (98-107) mmol/L Carbon Dioxide 25 (22-30) mmol/L Anion Gap 13 H (4-12) mmol/L BUN 17 (9-20) mg/dL Creatinine 0.91 (0.7-1.3) mg/dL Estim Creat Clear Calc 88 ml/min Estimated GFR > 60 (59 - ) Glucose 477 H (65-110) mg/dL POC Capillary Glucose 470 H (65-105) mg/dl Calcium 10.0 (8.4-10.2) mg/dL Total Bilirubin 0.8 (0.2-1.3) mg/dL AST 97 H (17-59) U/L ALT 118 H (6-50) U/L Alkaline Phosphatase 112 (38-126) U/L Total Protein 9.7 H (6.3-8.2) g/dL Albumin 5.1 (3.5-5.1) g/dL Urine Color Yellow (Yellow) Urine Appearance Clear (Clear) Urine pH 5.0 (5.0-9.0) Ur Specific Gilbert > 1.045 H (1.001-1.035) Urine Protein Trace (Negative) mg/dL Urine Glucose (UA) 3+ H (Negative) mg/dL Urine Ketones Trace H (Negative) mg/dL Ur Blood (Man) Negative (Negative) Urine Nitrate Negative (Negative) Urine Bilirubin Negative (Negative) Urine Urobilinogen 0.2 (<2.0) mg/dL Leukocyte Esterase Rfl Negative (Negative) TONY/UL Urine RBC 0-2 (0-2) /hpf Urine WBC 0-5 (0-3) /hpf Ur Squamous Epith Cells None seen (Few) /hpf Urine Bacteria None seen /hpf Urine Casts 0-2 Imaging Data Radiologist's impression: ITS Impressions Lumbar Spine X-Ray 08/31/25 10:23 Impression: 1: No acute abnormality of the lumbar spine. Discharge Plan Discharge Clinical Impression: Neuropathy, Uncontrolled diabetes mellitus Patient Disposition: Home Condition: Stable Instructions: Diabetic Neuropathy (ED) Additional Instructions: You need to start taking your insulin and this will help with your neuropathic pain. This also healthy with long-term health. Follow-up with your PCP for further treatment and evaluation. He will also be started on gabapentin. If you do not have PCP if physician has been listed below. Patient Language: Niuean Prescriptions: New insulin glargine [Lantus Solostar U-100 Insulin] 100 unit/mL (3 mL) insulin pen 10 unit subcut QPM Qty: 3 0RF gabapentin 300 mg capsule 300 mg PO BID Qty: 20 0RF No Action fluticasone propionate [Flonase Allergy Relief] 50 mcg/actuation spray,suspension 2 spray intranasal DAILY Qty: 9.9 0RF Rx Instructions: administer into each nostril loratadine [Claritin] 10 mg tablet 10 mg PO DAILY PRN (Reason: allergy symptoms) Qty: 14 0RF metformin 1,000 mg tablet 1,000 mg PO BID Qty: 60 0RF insulin glargine [Lantus U-100 Insulin] 100 unit/mL solution 20 unit subcut DAILY Qty: 10 0RF lisinopril 10 mg tablet 10 mg PO DAILY Qty: 30 0RF Follow-up/Referrals: PHYSICIAN,GLOBAL LOGISTICS ANALYST [Primary Care Provider, Internal Medicine] Ken Suárez MD [Physician, Family Practice] - 1 Week
[2025-08-31] MEDS: GABAPENTIN 300 MG CAPSULE PO (10:11)
[2025-08-31 10:17] LABS: Alanine Aminotransferase 118 U/L (6-50); Albumin Level 5.1 g/dL (3.5-5.1); Alkaline Phosphatase 112 U/L (38-126); Anion Gap 13 mmol/L (4-12); Aspartate Amino Transferase 97 U/L (17-59); Bilirubin,Total 0.8 mg/dL (0.2-1.3); Blood Urea Nitrogen 17 mg/dL (9-20); Calcium 10.0 mg/dL (8.4-10.2); Carbon Dioxide 25 mmol/L (22-30); Chloride 97 mmol/L (98-107); Estimated CRCL calculation 88 ml/min; Estimated Glomerular Filt Rate > 60; Glucose 477 mg/dL (65-110); Potassium 4.7 mmol/L (3.4-5.0); Sodium 135 mmol/L (137-145); Total Protein 9.7 g/dL (6.3-8.2)
[2025-08-31] MEDS: SODIUM CHLORIDE 0.9% IV 1,000 ML 999 ML IV CONT (10:28)
[2025-08-31] MEDS: KETOROLAC 30 MG/ML VIAL (*BKC) IV PUSH (10:28)
[2025-08-31 10:32] VITALS: BP 149/102; PULSE 86; RESP 14; O2SAT 99
[2025-08-31 12:32] VITALS: BP 133/99; PULSE 86; RESP 17; O2SAT 98
== END 2025-08-31 12:33 | disposition home or self-care (01) ==
PROVIDERS: Emergency Provider Emergency Medicine
DX: E11.65 Type 2 diabetes mellitus with hyperglycemia (principal); E11.40 Type 2 diabetes mellitus with diabetic neuropathy, unspecified; T38.3X6A Underdosing of insulin and oral hypoglycemic [antidiabetic] drugs, initial encounter
CPT/HCPCS: 36415; 72100; 80053; 81001; 82948; 85025; 96361; 96374; 99284; A9270; J1885; J7030